=== PATIENT | female | born 1950 | race Caucasian/White ===

== ENCOUNTER 2017-11-11 05:13 | Emergency (ER) | payer MEDICARE ==
[~2017-11-11] VITALS: Ht 157.5 cm; Wt 45.4 kg
[~2017-11-11 05:13] MED LIST: ALBU8HFA2 INH; ALBU90OI; ASPI325; AZIT250 PO; Bactrim Ds Tab1 EACH PO; CALCAVITDA PO; CARV3.125 PO; CITA20; CITA20 PO; CLON1; CLON2; CLON2 PO; CYCL10; CYCL10 PO; FLUT.05NI; HYDACE10B; HYDACE10B PO; HYDACE5 PO; HYDACE5325; HYDMOR4 PO; Lisinopril2.5 MG PO; META800 PO; METH10 PO; METH40; METH40 PO; METH5 PO; MULVITMIND PO; NAPR550 PO; OXYC15ER PO; OXYC30; OXYC30 PO; OXYC30ER PO; PREG25 PO; PREG75; PREG75 PO; PROM25; QUET25 PO; RANI150 PO; SOMA350 MG PO; SPIR25 PO; Venlafaxine HCl50 MG PO
[2017-11-12] MEDS ORDERED: Klonopin0.5 MG PO (20:54)
== END 2017-11-11 06:45 | disposition home or self-care (01) ==
LOC: ER 05:13
DX: F41.9 Anxiety disorder, unspecified (principal); G89.4 Chronic pain syndrome; F17.210 Nicotine dependence, cigarettes, uncomplicated; Z79.899 Other long term (current) drug therapy; Z79.82 Long term (current) use of aspirin
CPT/HCPCS: 99283

== ENCOUNTER 2017-11-12 20:22 | Emergency (ER) | payer MEDICARE ==
[~2017-11-12] VITALS: Ht 157.5 cm; Wt 45.4 kg
[2017-11-12] MEDS ORDERED: Klonopin0.5 MG PO (20:54)
== END 2017-11-12 21:05 | disposition home or self-care (01) ==
LOC: ER 20:22
DX: F41.1 Generalized anxiety disorder (principal); F17.210 Nicotine dependence, cigarettes, uncomplicated; Z79.899 Other long term (current) drug therapy; Z79.82 Long term (current) use of aspirin
CPT/HCPCS: 99283

== ENCOUNTER 2017-11-27 10:24 | Emergency (ER) | payer MEDICARE ==
[~2017-11-27] VITALS: Ht 157.5 cm; Wt 49.9 kg
[~2017-11-27 10:24] MED LIST changes: +Klonopin0.5 MG PO
[2017-11-27 10:50] LABS: Source, Urine Clean Catch
[2017-11-27 10:53] LABS: Bilirubin, Urine Neg (Neg); Blood, Urine 1+ (Neg); Glucose Qualitative, Urine Neg (Neg); Ketones, Urine Neg (Neg); Leukocyte Esterase, Urine Neg (Neg); Nitrite, Urine Neg (Neg); Protein, Urine 2+ (Neg); Specific Gravity, Urine 1.025 (1.003-1.022); Urobilinogen, Urine NORM (Normal)
[2017-11-27] MEDS ORDERED: Aspirin325 MG PO (11:00)
[2017-11-27] MEDS ORDERED: CLON.5 PO (11:01)
[2017-11-27 11:02] LABS: Appearance, Urine Clear (Clear); Color, Urine Yellow (P-Yellow)
[2017-11-27 11:03] LABS: Red Blood Cells, Urine 0-2 /hpf (0-2); White Blood Cells, Urine Not Seen /hpf (0-5)
[2017-11-27 11:04] LABS: Bacteria Few /hpf; Squamous Epithelial Cells Few /hpf (Few)
[2017-11-27] MEDS ORDERED: Buspirone HCl7.5 MG PO (11:05)
[2017-11-27 11:16] LABS: BASOPHILS ABSOLUTE AUTO 0.08 K/mm3 (0.00-0.23); BASOPHILS PERCENT AUTO 1 % (0-2); EOSINOPHILS ABSOLUTE AUTO 0.21 K/mm3 (0.00-0.68); EOSINOPHILS PERCENT AUTO 2 % (0-6); Hematocrit 45.3 % (33.0-51.0); Hemoglobin 15.1 g/dL (11.5-16.0); IMMATURE GRAN ABSOLUTE AUTO 0.08 K/mm3 (0.00-0.10); IMMATURE GRAN PERCENT AUTO 1 % (0-1); LYMPHOCYTES PERCENT AUTO 18 % (21-46); MONOCYTES ABSOLUTE AUTO 0.77 K/mm3 (0.16-1.47); MONOCYTES PERCENT AUTO 7 % (4-13); Mean Corpuscular HGB Conc 33.3 g/dL (31.5-36.5); Mean Corpuscular Volume 99 fL (80-100); NEUTROPHILS ABSOLUTE AUTO 7.49 K/mm3 (1.96-9.15); NEUTROPHILS PERCENT AUTO 71 % (41-73); Platelet Count 198 K/mm3 (150-400); RDW Coefficient Variation 13.1 % (11.7-14.2); RDW Standard Deviation 47.5 fL (35.1-46.3); Red Blood Cell Count 4.57 M/mm3 (3.80-5.20); White Blood Cell Count 10.53 K/mm3 (4.00-11.30)
[2017-11-27 11:33] LABS: Alanine Aminotransfer (ALT/SGP 30 U/L (12-78); Albumin, Blood 4.5 g/dL (3.4-5.0); Albumin/Globulin Ratio 1.2 (0.8-1.8); Alk Phos 73 U/L (50-136); Anion Gap 5 mmol/L (6-16); Aspartate Aminotrans (AST/SGOT 21 U/L (12-37); Bilirubin, Total 0.3 mg/dL (0.1-1.0); Blood Urea Nitrogen 23 mg/dL (8-24); Bun/Creatinine Ratio 37.9 (12.0-20.0); CO2, Blood 25 mmol/L (21-32); Calcium, Blood 9.2 mg/dL (8.5-10.1); Chloride, Blood 107 mmol/L (98-108); Creatinine, Blood 0.61 mg/dL (0.40-1.00); Globulin, Blood 3.9 g/dL (2.2-4.0); Glomerular Filtration Rate >60 (60-); Glucose, Blood 74 mg/dL (70-99); Potassium, Blood 4.2 mmol/L (3.5-5.5); Sodium, Blood 137 mmol/L (136-145); Total Protein, Blood 8.4 g/dL (6.4-8.2)
[2017-11-27] MEDS ORDERED: BUSP5 PO (11:42)
== END 2017-11-27 12:00 | disposition home or self-care (01) ==
LOC: ER 10:24
PROVIDERS: Emergency Medicine
DX: F41.8 Other specified anxiety disorders (principal); F17.210 Nicotine dependence, cigarettes, uncomplicated; Z79.899 Other long term (current) drug therapy; Z79.82 Long term (current) use of aspirin
CPT/HCPCS: 36415; 80053; 81001; 85025; 99283

== ENCOUNTER 2018-01-24 18:19 | Emergency (ER) | payer MEDICARE ==
[~2018-01-24] VITALS: Ht 157.5 cm; Wt 59.0 kg
[~2018-01-24 18:19] MED LIST changes: +Aspirin325 MG PO; +BUSP5 PO; +Buspirone HCl7.5 MG PO; +CLON.5 PO
[2018-01-24] MEDS ORDERED: Vistaril50 MG PO (20:20)
== END 2018-01-24 20:55 | disposition home or self-care (01) ==
LOC: ER 18:19
DX: F41.9 Anxiety disorder, unspecified (principal); F17.210 Nicotine dependence, cigarettes, uncomplicated; Z79.899 Other long term (current) drug therapy; Z79.82 Long term (current) use of aspirin
CPT/HCPCS: 99283

== ENCOUNTER 2018-09-22 15:20 | Emergency (ER) | payer MEDICARE ==
[~2018-09-22] VITALS: Ht 157.5 cm; Wt 59.0 kg
[~2018-09-22 15:20] MED LIST changes: +Vistaril50 MG PO
[2018-09-22 15:57] LABS: BASOPHILS ABSOLUTE AUTO 0.06 K/mm3 (0.00-0.23); BASOPHILS PERCENT AUTO 1 % (0-2); EOSINOPHILS PERCENT AUTO 1 % (0-6); IMMATURE GRAN ABSOLUTE AUTO 0.04 K/mm3 (0.00-0.10); IMMATURE GRAN PERCENT AUTO 1 % (0-1); LYMPHOCYTES ABSOLUTE AUTO 1.34 K/mm3 (0.84-5.20); LYMPHOCYTES PERCENT AUTO 17 % (21-46); MONOCYTES ABSOLUTE AUTO 0.46 K/mm3 (0.16-1.47); MONOCYTES PERCENT AUTO 6 % (4-13); Mean Corpuscular HGB 33.7 pg (26.0-34.0); Mean Corpuscular HGB Conc 32.6 g/dL (31.5-36.5); Mean Corpuscular Volume 103 fL (80-100); Mean Platelet Volume 11.9 fL (9.1-12.4); NEUTROPHILS ABSOLUTE AUTO 5.71 K/mm3 (1.96-9.15); NEUTROPHILS PERCENT AUTO 74 % (41-73); Platelet Count 168 K/mm3 (150-400); RDW Coefficient Variation 13.2 % (11.7-14.2); Red Blood Cell Count 4.16 M/mm3 (3.80-5.20); White Blood Cell Count 7.71 K/mm3 (4.00-11.30)
[2018-09-22 18:37] LABS: Alanine Aminotransfer (ALT/SGP 22 U/L (12-78); Albumin, Blood 3.6 g/dL (3.4-5.0); Albumin/Globulin Ratio 1.2 (0.8-1.8); Alk Phos 73 U/L (50-136); Anion Gap 8 mmol/L (6-16); Aspartate Aminotrans (AST/SGOT 16 U/L (12-37); Bilirubin, Total 0.1 mg/dL (0.1-1.0); Blood Urea Nitrogen 17 mg/dL (8-24); Bun/Creatinine Ratio 32.1 (12.0-20.0); CO2, Blood 28 mmol/L (21-32); Calcium, Blood 8.4 mg/dL (8.5-10.1); Chloride, Blood 108 mmol/L (98-108); Creatinine, Blood 0.53 mg/dL (0.40-1.00); Glomerular Filtration Rate >60 (60-); Glucose, Blood 110 mg/dL (70-99); Sodium, Blood 144 mmol/L (136-145); Total Protein, Blood 6.6 g/dL (6.4-8.2)
== END 2018-09-22 16:18 | disposition left against medical advice (07) ==
LOC: ER 15:20
PROVIDERS: Physician Assistant
DX: Z53.21 Procedure and treatment not carried out due to patient leaving prior to being seen by health care provider (principal)
CPT/HCPCS: 36415; 76705; 80053; 83690; 85025; 99284-25

== ENCOUNTER 2018-12-30 14:47 | Observation (INO) | payer MEDICARE ==
[~2018-12-30] VITALS: Ht 160 cm; Wt 44.9 kg
[~2018-12-30 14:47] MED LIST changes: -CARV3.125 PO; +Coreg12.5 MG PO
[2018-12-30 15:23] LABS: BASOPHILS ABSOLUTE AUTO 0.07 K/mm3 (0.00-0.23); BASOPHILS PERCENT AUTO 1 % (0-2); EOSINOPHILS PERCENT AUTO 1 % (0-6); Hematocrit 41.2 % (33.0-51.0); Hemoglobin 13.2 g/dL (11.5-16.0); IMMATURE GRAN ABSOLUTE AUTO 0.04 K/mm3 (0.00-0.10); IMMATURE GRAN PERCENT AUTO 0 % (0-1); LYMPHOCYTES ABSOLUTE AUTO 1.25 K/mm3 (0.84-5.20); LYMPHOCYTES PERCENT AUTO 13 % (21-46); MONOCYTES ABSOLUTE AUTO 0.87 K/mm3 (0.16-1.47); MONOCYTES PERCENT AUTO 9 % (4-13); Mean Corpuscular HGB 32.4 pg (26.0-34.0); Mean Corpuscular Volume 101 fL (80-100); Mean Platelet Volume 11.4 fL (9.1-12.4); NEUTROPHILS ABSOLUTE AUTO 7.31 K/mm3 (1.96-9.15); NEUTROPHILS PERCENT AUTO 76 % (41-73); Platelet Count 179 K/mm3 (150-400); RDW Coefficient Variation 13.2 % (11.7-14.2); RDW Standard Deviation 49.5 fL (35.1-46.3); Red Blood Cell Count 4.07 M/mm3 (3.80-5.20); White Blood Cell Count 9.64 K/mm3 (4.00-11.30)
[2018-12-30 15:28] LABS: Source, Urine Clean Catch
[2018-12-30 15:46] LABS: Appearance, Urine Clear (Clear); Bilirubin, Urine Neg (Neg); Blood, Urine Neg (Neg); Color, Urine Yellow (P-Yellow); Glucose Qualitative, Urine Neg (Neg); Ketones, Urine 1+ (Neg); Leukocyte Esterase, Urine 1+ (Neg); Nitrite, Urine Neg (Neg); Protein, Urine 1+ (Neg); Specific Gravity, Urine 1.015 (1.003-1.022); Urobilinogen, Urine NORM (Normal); pH, Urine 6.5 (5.0-8.0)
[2018-12-30 15:52] LABS: Alanine Aminotransfer (ALT/SGP 38 U/L (12-78); Albumin, Blood 3.6 g/dL (3.4-5.0); Albumin/Globulin Ratio 1.2 (0.8-1.8); Alk Phos 85 U/L (50-136); Anion Gap 5 mmol/L (6-16); Aspartate Aminotrans (AST/SGOT 26 U/L (12-37); Bilirubin, Total 0.5 mg/dL (0.1-1.0); Blood Urea Nitrogen 27 mg/dL (8-24); Bun/Creatinine Ratio 38.4 (12.0-20.0); CO2, Blood 29 mmol/L (21-32); Calcium, Blood 8.6 mg/dL (8.5-10.1); Chloride, Blood 103 mmol/L (98-108); Glomerular Filtration Rate >60 (60-); Glucose, Blood 113 mg/dL (70-99); Potassium, Blood 4.6 mmol/L (3.5-5.5); Salicylate 10.5 mg/dL (2.8-20.0); Sodium, Blood 137 mmol/L (136-145); Total Protein, Blood 6.6 g/dL (6.4-8.2)
[2018-12-30] MEDS ORDERED: METH10 PO (15:57)
[2018-12-30] MEDS ORDERED: OXYC30 PO (15:57)
[2018-12-30 15:59] LABS: U Amphetamine Screen Not Detected; U Barbituate Screen Not Detected; U Benzodiazapine Screen DETECTED; U Buprenorphine Screen Not Detected; U Cannabinoids Screen Not Detected; U Cocaine Screen Not Detected; U Methadone Screen DETECTED; U Methamphetamine Screen Not Detected; U Opiates Screen Not Detected; U Oxycodone Screen DETECTED; U Phencyclidine Screen Not Detected
[2018-12-30 15:59] LABS: Acetaminophen, Random <2.0 ug/mL (10.0-30.0)
[2018-12-30] MEDS ORDERED: SPIR25 PO (15:59)
[2018-12-30 16:00] LABS: U Propoxyphene Screen Not Detected
[2018-12-30 16:09] LABS: Red Blood Cells, Urine 0-2 /hpf (0-2); Squamous Epithelial Cells Mod /hpf (Few)
[2018-12-30 16:10] LABS: Bacteria Few /hpf
--- NOTE | 2018-12-30 19:00 | NUR ---
Blair of Care: Patient sitting upright in bed, watching tv, talking on phone with family. Denies pain, discomfort, SOB, or dyspnea. Alert, oriented to self, time, and family. Confused to place and reason for admission, does not remember taking medications (oxycodone, methadone). VSS, O2-98% on RA. Peripheral IV's x2 patent and intact, SL. PO fluids at bedside. Stand-pivot assist to bedside commode via 1 person assist. X1 attempt at start of shift to get out of bed, tab alarm applied. Patient re-oriented to use of call light. Will continue to monitor for pain, comfort, safety.
--- NOTE | 2018-12-30 19:18 | NUR ---
INITIAL ASSESSMENT PATIENT ARRIVED TO UNIT SHORT TIME AGO. PATIENT ALERT AND ORIENTED X 4, HOWEVER SEEMS FORGETFUL. PATIENT DENIES SI AND STATES THAT SHE IS IN HOSPITAL BECAUSE OF HER HEART. PATIENT DENIES PAIN. PATIENT AFEBRILE. PATIENT WEAK, 1 PERSON ASSIST. PATIENT SATTING HIGH 90S ON RA. PATIENT HAS INSPIRATORY WHEEZES IN UPPER LOBES AND DIMINISHED IN LOWER LOBES. PATIENT HAS MOIST, NONPRODUCTIVE COUGH. PATIENT IN SR WITH LBBB AND OCCASIONAL PVCS. HR 70S TO 80S. BP STABLE. PULSES STRONG. NO EDEMA NOTED. GI WNL. WNL. SKIN WNL. IVS FLUSHED AND SALINE LOCKED. BED LOW, CALL LIGHT IN REACH, TAB ALARM ON. WILL CONTINUE TO MONITOR.
[2018-12-31 04:05] LABS: Anion Gap 3 mmol/L (6-16); Blood Urea Nitrogen 14 mg/dL (8-24); Bun/Creatinine Ratio 25.5 (12.0-20.0); CO2, Blood 34 mmol/L (21-32); Calcium, Blood 8.7 mg/dL (8.5-10.1); Chloride, Blood 103 mmol/L (98-108); Creatinine, Blood 0.55 mg/dL (0.40-1.00); Glomerular Filtration Rate >60 (60-); Glucose, Blood 79 mg/dL (70-99); Magnesium, Blood 2.2 mg/dL (1.6-2.4); Sodium, Blood 140 mmol/L (136-145)
--- NOTE | 2018-12-31 06:44 | NUR ---
Shift Summary: Patient slept well throughout shift, easily roused via verbal stimuli. Continues to deny pain, discomfort, SOB, or dyspnea. Remains alert oriented to self/time, confused to reason for admission. VSS throughout shift, O@-95-98% on RA. Transferring to bedside commode or chair via stand-by assist without difficulty. Tab-alarm in place for safety, forgets to use call light but calls out for assistance. Peripheral IV's x2 remain patent and intact. Sleeping at this time. Will continue to monitor until report to day shift RN.
--- NOTE | 2018-12-31 08:56 | NUR ---
0730-ASSUMED CARE OF PT. PT IS ALERT AND ORIENTED. LABILE MOOD FROM BEING ANGRY TO TEARFUL TO PLEASANT AND THANKFUL. PT TRIED TO GET OUT OF BED FREQUENTLY DESPITE THE BED ALARM AND THE TAB ALARM. PT IS A FLIGHT RISK. COMPLAINTS OF ABDOMINAL PAIN. 0845-PT SITTING ON THE CAHIR AT THIS TIME. 0856-TALKKED TO DR. LASHAWN MCCRACKEN. REGARDING PT'S LABILE MOOD. UPDATED HER OF PT'S STATUS.
--- NOTE | 2018-12-31 10:11 | NUR ---
POISON CONTROL HAD CALLED, UPDATED THEM OF PT'S STATUS. POISON CONTROL CLEARED PATIENT. RELAYED THIS INFORMATION TO DR. LASHAWN Poole. PT HAS BEEN SO AGITATED AND GETTING OUT OF BED EVERY 2 MINS. PT IS VERY FORGETFUL AND STATING "I'M SCARED. I DON'T KNOW, WHY I AM SCARED." DR. LASHAWN Poole WAS NOTIFIED ABOUT THIS WELL. SET UP AN APPOINTMENT WITH TELEPSYCH.
--- NOTE | 2018-12-31 12:49 | NUR ---
PT WAS ABLE TO TALK TO THE TELEPSYCH DR. DR. BARLOW. SPOKE WITH DR. HARDIN, PT WILL BE DISCHARGED HOME.
[2018-12-31] MEDS ORDERED: Cymbalta20 MG PO (13:31)
== END 2018-12-31 14:40 | disposition home or self-care (01) ==
LOC: ER 14:47 → ICUW 14:48
PROVIDERS: Emergency Medicine; Nurse Practitioner Acute Care; ADMIT Internal Medicine
DX: T40.3X1A Poisoning by methadone, accidental (unintentional), initial encounter (principal); T40.2X2A Poisoning by other opioids, intentional self-harm, initial encounter; G89.29 Other chronic pain; F41.1 Generalized anxiety disorder; I11.0 Hypertensive heart disease with heart failure; I50.22 Chronic systolic (congestive) heart failure; M54.9 Dorsalgia, unspecified; F17.210 Nicotine dependence, cigarettes, uncomplicated; F17.200 Nicotine dependence, unspecified, uncomplicated; Z98.890 Other specified postprocedural states; Z79.899 Other long term (current) drug therapy; Z88.6 Allergy status to analgesic agent; Z79.01 Long term (current) use of anticoagulants
CPT/HCPCS: 36415; 80048; 80053; 81001; 83735; 85025; 87086; 93005; 93010; 96365; 96372; 99285-25; G0378; G0480; J1650; J3475

== ENCOUNTER 2019-10-03 10:56 | Emergency (ER) | payer MEDICARE ==
[~2019-10-03] VITALS: Ht 157.5 cm; Wt 45.4 kg
[~2019-10-03 10:56] MED LIST changes: +Cymbalta20 MG PO
[2019-10-03 11:46] LABS: BASOPHILS ABSOLUTE AUTO 0.07 K/mm3 (0.00-0.23); BASOPHILS PERCENT AUTO 1 % (0-2); EOSINOPHILS ABSOLUTE AUTO 0.15 K/mm3 (0.00-0.68); EOSINOPHILS PERCENT AUTO 2 % (0-6); Hematocrit 41.4 % (33.0-51.0); Hemoglobin 13.1 g/dL (11.5-16.0); IMMATURE GRAN ABSOLUTE AUTO 0.04 K/mm3 (0.00-0.10); IMMATURE GRAN PERCENT AUTO 0 % (0-1); LYMPHOCYTES ABSOLUTE AUTO 1.76 K/mm3 (0.84-5.20); LYMPHOCYTES PERCENT AUTO 20 % (21-46); MONOCYTES ABSOLUTE AUTO 0.95 K/mm3 (0.16-1.47); MONOCYTES PERCENT AUTO 11 % (4-13); Mean Corpuscular HGB 31.5 pg (26.0-34.0); Mean Corpuscular HGB Conc 31.6 g/dL (31.5-36.5); Mean Corpuscular Volume 100 fL (80-100); NEUTROPHILS ABSOLUTE AUTO 6.07 K/mm3 (1.96-9.15); NEUTROPHILS PERCENT AUTO 67 % (41-73); Platelet Count 242 K/mm3 (150-400); RDW Coefficient Variation 13.9 % (11.7-14.2); RDW Standard Deviation 50.6 fL (35.1-46.3); Red Blood Cell Count 4.16 M/mm3 (3.80-5.20); White Blood Cell Count 9.04 K/mm3 (4.00-11.30)
[2019-10-03 12:01] LABS: Source, Urine Clean Catch
[2019-10-03 12:06] LABS: Alanine Aminotransfer (ALT/SGP 35 U/L (12-78); Albumin, Blood 3.5 g/dL (3.4-5.0); Albumin/Globulin Ratio 0.9 (0.8-1.8); Alk Phos 95 U/L (50-136); Anion Gap 4 mmol/L (6-16); Aspartate Aminotrans (AST/SGOT 25 U/L (12-37); Bilirubin, Total 0.3 mg/dL (0.1-1.0); Blood Urea Nitrogen 9 mg/dL (8-24); Bun/Creatinine Ratio 19.8 (12.0-20.0); CO2, Blood 30 mmol/L (21-32); Calcium, Blood 9.3 mg/dL (8.5-10.1); Chloride, Blood 103 mmol/L (98-108); Creatinine, Blood 0.46 mg/dL (0.40-1.00); Glomerular Filtration Rate >60 (60-); Glucose, Blood 72 mg/dL (70-99); Potassium, Blood 4.5 mmol/L (3.5-5.5); Sodium, Blood 137 mmol/L (136-145); Total Protein, Blood 7.5 g/dL (6.4-8.2)
[2019-10-03 12:07] LABS: Bilirubin, Urine Neg (Neg); Blood, Urine Neg (Neg); Glucose Qualitative, Urine Neg (Neg); Ketones, Urine Neg (Neg); Leukocyte Esterase, Urine 1+ (Neg); Nitrite, Urine Neg (Neg); Protein, Urine Neg (Neg); Urobilinogen, Urine NORM (Normal)
[2019-10-03 12:13] LABS: Appearance, Urine Clear (Clear)
[2019-10-03 12:14] LABS: Color, Urine Yellow (P-Yellow)
[2019-10-03 12:18] LABS: Bacteria Few /hpf; Red Blood Cells, Urine 0-2 /hpf (0-2); Squamous Epithelial Cells Few /hpf (Few)
[2019-10-03] MEDS ORDERED: PEPCID40 MG PO (13:06)
[2019-10-03] MEDS ORDERED: Sucralfate1 GM PO (13:06)
[2019-10-03] MEDS ORDERED: NICO21TP TOP (13:18)
== END 2019-10-03 13:27 | disposition home or self-care (01) ==
LOC: ER 10:56
PROVIDERS: Physician Assistant
DX: K29.70 Gastritis, unspecified, without bleeding (principal); S00.31XA Abrasion of nose, initial encounter; F03.90 Unspecified dementia, unspecified severity, without behavioral disturbance, psychotic disturbance, mood disturbance, and anxiety; F17.210 Nicotine dependence, cigarettes, uncomplicated; Z88.6 Allergy status to analgesic agent; X58.XXXA Exposure to other specified factors, initial encounter
CPT/HCPCS: 36415; 80053; 81001; 83690; 85025; 87086; 99283

== ENCOUNTER 2019-12-05 12:46 | Observation (INO) | payer MEDICARE ==
[~2019-12-05] VITALS: Ht 162.6 cm; Wt 44.9 kg
[~2019-12-05 12:46] MED LIST changes: +NICO21TP TOP; +PEPCID40 MG PO; +Sucralfate1 GM PO
[2019-12-05 13:33] LABS: BASOPHILS ABSOLUTE AUTO 0.07 K/mm3 (0.00-0.23); BASOPHILS PERCENT AUTO 1 % (0-2); EOSINOPHILS PERCENT AUTO 1 % (0-6); Hematocrit 33.7 % (33.0-51.0); Hemoglobin 10.7 g/dL (11.5-16.0); IMMATURE GRAN ABSOLUTE AUTO 0.07 K/mm3 (0.00-0.10); IMMATURE GRAN PERCENT AUTO 1 % (0-1); LYMPHOCYTES ABSOLUTE AUTO 1.02 K/mm3 (0.84-5.20); LYMPHOCYTES PERCENT AUTO 9 % (21-46); MONOCYTES ABSOLUTE AUTO 0.89 K/mm3 (0.16-1.47); MONOCYTES PERCENT AUTO 8 % (4-13); Mean Corpuscular HGB 32.7 pg (26.0-34.0); Mean Corpuscular HGB Conc 31.8 g/dL (31.5-36.5); Mean Corpuscular Volume 103 fL (80-100); Mean Platelet Volume 11.5 fL (9.1-12.4); NEUTROPHILS ABSOLUTE AUTO 9.47 K/mm3 (1.96-9.15); NEUTROPHILS PERCENT AUTO 81 % (41-73); NRBC ABSOLUTE 0.02 K/mm3 (0.00-0.02); NRBC Auto 0.2 /100 WBC (0.0-0.2); Platelet Count 164 K/mm3 (150-400); RDW Coefficient Variation 15.2 % (11.7-14.2); RDW Standard Deviation 56.2 fL (35.1-46.3); Red Blood Cell Count 3.27 M/mm3 (3.80-5.20); White Blood Cell Count 11.62 K/mm3 (4.00-11.30)
[2019-12-05 13:52] LABS: Acetaminophen, Random <2.0 ug/mL (10.0-30.0); Alanine Aminotransfer (ALT/SGP 161 U/L (12-78); Albumin, Blood 3.6 g/dL (3.4-5.0); Albumin/Globulin Ratio 1.2 (0.8-1.8); Alk Phos 147 U/L (50-136); Anion Gap 7 mmol/L (6-16); Aspartate Aminotrans (AST/SGOT 155 U/L (12-37); Bilirubin, Total 0.8 mg/dL (0.1-1.0); Blood Urea Nitrogen 19 mg/dL (8-24); Bun/Creatinine Ratio 23.5 (12.0-20.0); CO2, Blood 28 mmol/L (21-32); Calcium, Blood 8.4 mg/dL (8.5-10.1); Chloride, Blood 98 mmol/L (98-108); Creatinine, Blood 0.81 mg/dL (0.40-1.00); Ethanol (Alcohol), Blood, Med <3 mg/dL; Globulin, Blood 3.1 g/dL (2.2-4.0); Glomerular Filtration Rate >60 (60-); Glucose, Blood 106 mg/dL (70-99); Potassium, Blood 5.7 mmol/L (3.5-5.5); Salicylate 2.3 mg/dL (2.8-20.0); Sodium, Blood 133 mmol/L (136-145); Total Protein, Blood 6.7 g/dL (6.4-8.2)
[2019-12-05 14:20] LABS: Source, Urine Clean Catch
[2019-12-05 14:30] LABS: Appearance, Urine Hazy (Clear); Bilirubin, Urine Neg (Neg); Blood, Urine Neg (Neg); Color, Urine Yellow (P-Yellow); Glucose Qualitative, Urine Neg (Neg); Ketones, Urine Neg (Neg); Leukocyte Esterase, Urine Neg (Neg); Nitrite, Urine Neg (Neg); Protein, Urine 3+ (Neg); Urobilinogen, Urine NORM (Normal)
[2019-12-05 14:58] LABS: Amorphous Mod (0-Heavy); White Blood Cells, Urine 0-2 /hpf (0-5)
[2019-12-05 14:59] LABS: Bacteria Few /hpf; Red Blood Cells, Urine 0-2 /hpf (0-2); Squamous Epithelial Cells Few /hpf (Few)
[2019-12-05 15:05] LABS: U Amphetamine Screen DETECTED; U Barbituate Screen Not Detected; U Benzodiazapine Screen Not Detected; U Buprenorphine Screen Not Detected; U Cannabinoids Screen DETECTED; U Cocaine Screen Not Detected; U Methadone Screen Not Detected; U Methamphetamine Screen DETECTED; U Opiates Screen Not Detected; U Oxycodone Screen Not Detected; U Phencyclidine Screen Not Detected; U Propoxyphene Screen Not Detected
[2019-12-06] MEDS ORDERED: QUET25 PO (07:32)
== END 2019-12-06 09:55 | disposition home or self-care (01) ==
LOC: ER 12:46 → EOR 12:47
PROVIDERS: Physician Assistant; ADMIT Emergency Medicine
DX: F29 Unspecified psychosis not due to a substance or known physiological condition (principal); F17.210 Nicotine dependence, cigarettes, uncomplicated; F10.10 Alcohol abuse, uncomplicated; F41.9 Anxiety disorder, unspecified; Z79.899 Other long term (current) drug therapy
CPT/HCPCS: 36415; 80053; 81001; 84484; 85025; 94640; 96372; 96374; 96376; 99285-25; G0378; G0480; J2060; P9612

== ENCOUNTER 2020-02-06 10:47 | Inpatient (IN) | payer MEDICARE ==
[~2020-02-06] VITALS: Ht 157.5 cm; Wt 59.0 kg
[2020-02-06 11:31] LABS: BASOPHILS ABSOLUTE AUTO 0.03 K/mm3 (0.00-0.23); BASOPHILS PERCENT AUTO 0 % (0-2); EOSINOPHILS ABSOLUTE AUTO 0.03 K/mm3 (0.00-0.68); EOSINOPHILS PERCENT AUTO 0 % (0-6); Hemoglobin 11.8 g/dL (11.5-16.0); IMMATURE GRAN ABSOLUTE AUTO 0.05 K/mm3 (0.00-0.10); IMMATURE GRAN PERCENT AUTO 0 % (0-1); LYMPHOCYTES ABSOLUTE AUTO 1.21 K/mm3 (0.84-5.20); LYMPHOCYTES PERCENT AUTO 11 % (21-46); MONOCYTES ABSOLUTE AUTO 0.59 K/mm3 (0.16-1.47); MONOCYTES PERCENT AUTO 5 % (4-13); Mean Corpuscular HGB 29.9 pg (26.0-34.0); Mean Corpuscular HGB Conc 31.1 g/dL (31.5-36.5); Mean Corpuscular Volume 96 fL (80-100); Mean Platelet Volume 12.7 fL (9.1-12.4); NEUTROPHILS ABSOLUTE AUTO 9.66 K/mm3 (1.96-9.15); NEUTROPHILS PERCENT AUTO 83 % (41-73); NRBC ABSOLUTE 0.02 K/mm3 (0.00-0.02); NRBC Auto 0.2 /100 WBC (0.0-0.2); Platelet Count 153 K/mm3 (150-400); RDW Coefficient Variation 15.7 % (11.7-14.2); RDW Standard Deviation 55.2 fL (35.1-46.3); Red Blood Cell Count 3.94 M/mm3 (3.80-5.20); White Blood Cell Count 11.57 K/mm3 (4.00-11.30)
[2020-02-06 11:46] LABS: Alanine Aminotransfer (ALT/SGP 71 U/L (12-78); Albumin, Blood 3.1 g/dL (3.4-5.0); Albumin/Globulin Ratio 0.8 (0.8-1.8); Alk Phos 116 U/L (50-136); Anion Gap 9 mmol/L (6-16); Aspartate Aminotrans (AST/SGOT 50 U/L (12-37); Bilirubin, Total 1.9 mg/dL (0.1-1.0); Blood Urea Nitrogen 30 mg/dL (8-24); Bun/Creatinine Ratio 39.4 (12.0-20.0); CO2, Blood 27 mmol/L (21-32); Calcium, Blood 7.8 mg/dL (8.5-10.1); Chloride, Blood 102 mmol/L (98-108); Creatinine, Blood 0.76 mg/dL (0.40-1.00); Ethanol (Alcohol), Blood, Med <3 mg/dL; Globulin, Blood 3.7 g/dL (2.2-4.0); Glomerular Filtration Rate >60 (60-); Glucose, Blood 108 mg/dL (70-99); Potassium, Blood 3.8 mmol/L (3.5-5.5); Sodium, Blood 138 mmol/L (136-145); Total Protein, Blood 6.8 g/dL (6.4-8.2); Troponin I 0.031 ng/mL (0.000-0.040)
[2020-02-06] MEDS ORDERED: QUETIAPINE FUMA25 MG PO (11:55)
[2020-02-06 12:19] LABS: U Amphetamine Screen Not Detected; U Barbituate Screen Not Detected; U Benzodiazapine Screen Not Detected; U Cannabinoids Screen DETECTED; U Cocaine Screen Not Detected; U Methadone Screen Not Detected; U Methamphetamine Screen DETECTED; U Opiates Screen Not Detected
[2020-02-06 12:20] LABS: U Buprenorphine Screen Not Detected; U Oxycodone Screen Not Detected; U Phencyclidine Screen Not Detected; U Propoxyphene Screen Not Detected
[2020-02-06] MEDS ORDERED: CARV3.125 PO (12:35)
--- NOTE | 2020-02-06 18:22 | NUR ---
SHIFT SUMMARY PT ADMITTED TO PCU THIS AFTERNOON FOR CHF. PAK IN PLACE AND EMPTIED 14OOML UPON ARRIVAL. PT DECLINED ANY SHORTNESS OF BREATH UPON ARRIVAL TO UNIT AND ON 5L OXYIMIZER. SPO2 REMAINED STABLE AND WAS ABLE TO TITRATE PT DOWN TO 2L OF O2. TELEMETRY SHOWED PT TO BE IN NSR PER HOT MILL OPERATOR. AICD LOCATED TO LEFT CHEST. MULTIPLE SMALL BRUISES WERE NOTED THROUGH OUT PT'S BODY AND PT INITIALLY DECLINED ANY INJURY OR FALLS, UPON FURTHER EVAL PT REPORTS HAVING FALLEN AT HOME. SMALL BLISTER ALSO NOTED ON PT'S LEFT GAINES/LOWER LEG. PT WAS INSTRUCTED ON FLUID RESTRICT PER DR'S ORDERS, PT FORGETFUL AND NEEDS REMINDING ON REASON FOR ORDER. LOW CIWA SCORE CURRENTLY FOR PT. PT REPORTS ONLY HAVING "A SIP OF BEER" DAILY.
[2020-02-07 00:30] LABS: BASOPHILS ABSOLUTE AUTO 0.02 K/mm3 (0.00-0.23); BASOPHILS PERCENT AUTO 0 % (0-2); EOSINOPHILS ABSOLUTE AUTO 0.08 K/mm3 (0.00-0.68); EOSINOPHILS PERCENT AUTO 1 % (0-6); Hematocrit 32.2 % (33.0-51.0); Hemoglobin 10.1 g/dL (11.5-16.0); IMMATURE GRAN ABSOLUTE AUTO 0.03 K/mm3 (0.00-0.10); IMMATURE GRAN PERCENT AUTO 0 % (0-1); LYMPHOCYTES ABSOLUTE AUTO 1.07 K/mm3 (0.84-5.20); LYMPHOCYTES PERCENT AUTO 12 % (21-46); MONOCYTES ABSOLUTE AUTO 0.58 K/mm3 (0.16-1.47); MONOCYTES PERCENT AUTO 6 % (4-13); Mean Corpuscular HGB 29.9 pg (26.0-34.0); Mean Corpuscular HGB Conc 31.4 g/dL (31.5-36.5); Mean Corpuscular Volume 95 fL (80-100); Mean Platelet Volume 12.4 fL (9.1-12.4); NEUTROPHILS ABSOLUTE AUTO 7.44 K/mm3 (1.96-9.15); NEUTROPHILS PERCENT AUTO 81 % (41-73); Platelet Count 125 K/mm3 (150-400); RDW Coefficient Variation 15.5 % (11.7-14.2); Red Blood Cell Count 3.38 M/mm3 (3.80-5.20); White Blood Cell Count 9.22 K/mm3 (4.00-11.30)
[2020-02-07 00:49] LABS: Alanine Aminotransfer (ALT/SGP 52 U/L (12-78); Albumin, Blood 2.5 g/dL (3.4-5.0); Albumin/Globulin Ratio 0.8 (0.8-1.8); Alk Phos 89 U/L (50-136); Anion Gap 8 mmol/L (6-16); Aspartate Aminotrans (AST/SGOT 36 U/L (12-37); Bilirubin, Total 1.3 mg/dL (0.1-1.0); Blood Urea Nitrogen 31 mg/dL (8-24); Bun/Creatinine Ratio 37.3 (12.0-20.0); CO2, Blood 31 mmol/L (21-32); Calcium, Blood 7.4 mg/dL (8.5-10.1); Chloride, Blood 102 mmol/L (98-108); Creatinine, Blood 0.83 mg/dL (0.40-1.00); Glomerular Filtration Rate >60 (60-); Glucose, Blood 97 mg/dL (70-99); Magnesium, Blood 1.9 mg/dL (1.6-2.4); Potassium, Blood 3.5 mmol/L (3.5-5.5); Sodium, Blood 141 mmol/L (136-145); Total Protein, Blood 5.5 g/dL (6.4-8.2)
--- NOTE | 2020-02-07 06:18 | NUR ---
SHIFT SUMMARY PT ALERT & ORIENTED TO SELF; VSS; DENIES CHEST PAIN; 02 SATS >93 ON 2L NC; PT SLEPT SEVERAL HOURS; AWOKE ABRUBTLY AND STATES SHE HAS "BEEN GONE A LONG TIME" BEING IN THE HOSPITAL "IS THE BEST THING THAT HAS HAPPENED TO ME"; PT UNABLE TO ELABORATE; PAK DRAINING LT YELLOW URINE; WARM BLANKET BROUGHT TO PT; SNACKS ENCOURAGED AND BROUGHT TO PT; PO FLUIDS 22O ML INTAKE; CALL LIGHT IN REACH; BED IN LOWEST POSITION; BED ALARM ON; WILL CONTINUE TO MONITOR CLOSELY UNTIL HAND OFF TO DAY SHIFT RN.
--- NOTE | 2020-02-07 09:59 | NUR ---
AM NOTE... ASSUMED CARE OF PT APROX 0700, PT IS A&Ox4. PT WAS ADMITTED FOR RESP FAILURE. PT IS CURRENTLY ON 4 L, PT STATES HER BASELINE IS 3-5L NC. PT HAS BEEN VERBALLY AGRESSIVE TOWARDS STAFF THIS AM, A FULL ASSESSMENT WAS NOT ABLE TO BE DONE D/T THE PT'S REFUSAL OF CARE AND MEDICATIONS AT THIS TIME. PT IS NSR IN THE 80'S ON TELE. CALL LIGHT IN REACH WILL CONTINUE TO MONITOR.
--- NOTE | 2020-02-07 10:16 | NUR ---
AM NOTE... ASSUMED CARE OF PT APROX 0700. PT IS A&Ox4 BEING ABLE TO STATE THE MONTH, YEAR, PRESIDENT AND [place]. PT'S VS STABLE AT THIS TIME. L/S CLEAR IN THE UPPER LOBES FINE CRACKLES NOTED IN THE LOWER AND RIGHT MID LOBES. PT HAS 2+ PITTING EDEMA TO HER BLE. BT PRESENT AND NORMOACTIVE ABD SOFT AND NONTENDER TO PALP. PT'S PAK IS PATENT AND DRAINING TO GRAVITY. CALL LIGHT IN REACH WILL CONTINUE TO MONITOR.
--- NOTE | 2020-02-07 15:17 | NUR ---
PT UPDATE/TRANSFER... PT IS TRANSFERING TO MEDICAL FLOOR. VS STABLE AT THIS TIME, CWIA IS CURRENTLY 5. PT IS ON 1L NC WITH O2 SATS 96%. PT IS VERY PLEASENT AND COOPERATIVE WITH CARE. REPORT CALLED TO LEON TREJO ON MEDICAL FLOOR.
--- NOTE | 2020-02-07 15:30 | NUR ---
TRANSFER NOTE- PT TRANSFERED TO MEDICAL FLOOR FROM PCU. ACCORDING TO H&P PT HAS CHRONIC SYSTOLIC HEART FAILURE, LAST ECHO IN 2016. PT HAS NOT YET HAD A REPEAT ECHO, WILL CALL DR CASTLE TO VERIFY THAT ONE IS STILL NEEDED. PLAN (PER REPORT) IS TO DIURESE AND POSSIBLY DC THE PT HOME TOMORROW. PT HAS A PAK IN PLACE FOR SAFETY AND STRICT I&O'S. PATENT AND DRAINING DARK YELLOW URINE.
--- NOTE | 2020-02-07 15:45 | NUR ---
SPOKE TO DR CASTLE- LINDSEY ECHO HAS BEEN ORDERED, CALLED FISHING VESSEL MATE BILL, ECHO SHOULD BE COMPLETED THIS EVENING.
--- NOTE | 2020-02-07 18:13 | NUR ---
Echocardiogram using 0.50ml of Definity contrast performed.
--- NOTE | 2020-02-07 18:43 | NUR ---
SHIFT SUMMARY- PT HAS HAD NO ACUTE CHANGE SINCE ARRIVING ON MEDICAL FLOOR. PT HAD AN ECHO COMPLETED THIS EVENING. AT ONE POINT THE PT DID BEGIN CALLING OUT ANXIOUSLY BECAUSE SHE NEEDED TO HAVE A BM. STAFF ASSISTED HER TO THE BSC WHERE SHE DETERMINED IT WAS "A FALSE ALARM." PT REMAINS IN [facility] [employer] CIWA SCORE WAS 3 UPON ARRIVAL TO MED FLOOR.
--- NOTE | 2020-02-08 05:00 | NUR ---
RIPSAW GRADER SUMMARY PT HAD CIWA OF 8 AT START OF SHIFT. GIVEN 1 MG IV ATIVAN PER ORDERS. PT ABLE TO RELAX AND SLEEP AFTERWARD BUT WAS NOTICABLY DROWSY AFTER ATIVAN. PT REMAINED AAOX3, BUT WAS MORE SLOW IN HER RESPONSE. NOTIFIED MYRON LOZADA BULLDOZER/LOADER/COMPACTOR/SCRAPER SINCE ATIVAN ORDER STATED 1-4 MG, ORDER CHANGED TO 0.5-1 MG. PT HAS SLEPT MOST OF THE SHIFT. 1 ASSIST TO BSC. PAK CATH IN PLACE DRAINING CLEAR YELLOW URINE. VSS, WILL CONTINUE TO MONITOR.
[2020-02-08 08:43] LABS: Anion Gap 4 mmol/L (6-16); Blood Urea Nitrogen 33 mg/dL (8-24); Bun/Creatinine Ratio 46.5 (12.0-20.0); CO2, Blood 37 mmol/L (21-32); Calcium, Blood 7.5 mg/dL (8.5-10.1); Chloride, Blood 97 mmol/L (98-108); Creatinine, Blood 0.71 mg/dL (0.40-1.00); Glomerular Filtration Rate >60 (60-); Glucose, Blood 71 mg/dL (70-99); Magnesium, Blood 2.1 mg/dL (1.6-2.4); Potassium, Blood 3.3 mmol/L (3.5-5.5); Sodium, Blood 138 mmol/L (136-145)
--- NOTE | 2020-02-08 10:42 | NUR ---
SPOKE TO DR CASTLE (LATE ENTRY)- PT RECIEVED MORNING DOSE OF LASIX AT THE PREVIOUS DOSE, ORDER TO HOLD THE NEW DOSE OF IV LASIX THIS MORNING AND START THIS EVENING. OK TO GIVE NEW CARDIAC MEDICATIONS, SPIRONOLACTONE HOLD THIS MORNING GIVE THIS EVENING. PT BECAME IRRITABLE AND WAS CALLING OUT FOR STAFF STATED HER LEGS WERE CRAMPING, DISCONNECTED THE SCD'S, SPOKE TO , PT HAD ALREADY RECIEVED THE MORNING DOSE OF 10MEQ OF POTASSIUM, ORDER RECIEVED TO GIVE ADDITIONAL 20MEQ AT THIS TIME. PT CIWA SCORE CONTINUES TO BE 4.
--- NOTE | 2020-02-08 12:00 | NUR ---
PT DENIES ITCHING BUT IS SCRATCHING AND PICKING. GAVE 1 POINT FOR MILD ICHING ON CIWA. PT CIWA SCORE CURRENTLY IS 4
--- NOTE | 2020-02-08 12:32 | NUR ---
SPOKE TO DR CASTLE- PT NO LONGER NEEDS STRICT I&O OK TO TONY PAK. PT HAS HAD 3600 OUT IN THE PAK IN THE PAST 6 HOURS. PASHA JIMENEZ'Aime, PT VERY APPRECIATIVE. PT SITTING UP IN BED CALL LIGHT IN REACH, JUST WOKE FROM A HEAVY NAP.
--- NOTE | 2020-02-08 15:33 | NUR ---
CALLED DR CASTLE- PT SITTING UP IN THE BED CRYING "HELP ME! HELP ME! HELP MOMMA!" CIWA SCORE IS STILL BELOW 8 PT IS JUST ANXIOUS AND STATES SHE IS HUNGRY. STAFF WILL FEED HER AND SHE WILL BEGIN CRYING OUT FOR HELP THE MOMENT THE FOOD IS GONE. PT DENIES PAIN, STATES "NO, IM JUST HUNGRY." PROVIDED MORE SNACKS. RECIEVED AN ORDER FOR PO ZYPREXA IF NEEDED. SPOKE TO PALLIATIVE CARE RN SARBJIT ABOUT PT CASE SHE IS ATTEMPTING TO CALL THE PT FAMILY FOR DECISION MAKING THE PT IS FULL CODE.
--- NOTE | 2020-02-08 16:44 | NUR ---
PT IS VERY LABILE- PT CALLING OUT, STATES NO NAUSEA THEN SAYS HER STOMACH IS UPSET, STATES NO HEAD ACHE THEN SAYS HER HEAD HURTS, PT CAN ACCURATLY STATE THE DATE. PT CALLING OUT THAT SHE IS HUNGRY THEN IS UNCONCIOUS WHEN STAFF COME IN TO SEE HER.
--- NOTE | 2020-02-08 17:12 | NUR ---
SPOKE TO DR CASTLE- PT BP IS ORTHOSTATIC. SPOKE TO ABOUT THE LOW PRESSURE. OK TO HOLD ALL EVENING BP MEDS AND THE OT DOSE OF ZYPREXA. IV LASIX TO BE HELD THIS EVENING.
--- NOTE | 2020-02-08 18:17 | NUR ---
TRANSFER NOTE- PT TRANSFERED TO SCU FOR SAFETY AND REQUESTED MONITORS FOR SAFETY. BEDSIDE REPORT COMPLETED WITH YANETH TREJO. PT ALERT AT THE TIME OF TRANSFER TALKING CALMLY WITH STAFF. CIWA SCORE WAS DOWN AGAIN TO 4.
--- NOTE | 2020-02-08 19:17 | NUR ---
SHIFT SUMMARY: PATIENT XFR FROM ROOM 355 THIS SHIFT. PT ALERT; CONFUSED; REDIRECTABLE; COOPERATIVE WITH CARE. NO C/O PAIN SINCE ARRIVAL IN ROOM 347. O2 @ 1L FOR COMFORT. PT UP c 1-ASSIST TO BSC. FLUID RESTRICTION - 1500ML/DAY. PT & OT FOLLOWING. BED ALARM ON FOR SAFETY. DIURETICS CONTINUING. REPORT GIVEN TO ONCOMING RN.
--- NOTE | 2020-02-08 20:10 | NUR ---
CIWA SCORE OF 10. PT HIGHLY AGITATED, YELLING "HELP ME! HELP ME!" REPEATEDLY, ONLY STOPPING WHEN INTERACTED WITH. PT ALSO GETTING UP AND DOWN IN AND OUT OF BED REPEATEDLY, ACTING VERY RESTLESS. STATES SHE IS SCARED AND ANSIOUX. CALLING OUT FOR HER SONS. ATIVAN 1MG ADMINISTERED. WILL CONT TO MONITOR.
--- NOTE | 2020-02-08 23:33 | NUR ---
PT WOKE UP FROM SHORT NAP AGITATED AND ATTEMPTING TO GET OUT OF BED. WHEN SPOKE W/PT SHE STATES HER ANXIOUSNESS WOKE HER UP. ASSISTED TO THE BATHROOM, OFFERED SNACK, AND ADJUSTED ROOM TEMP PER PT PREFERENCE. CONT W/AGITATION AND RESTLESSNESS. OLANZAPINE ADMINISTERED PER ORDERS. PT PRESENTLY SLEEPING, APPEARS COMFORTABLE. RESPS REGULAR, NON-LABORED. WILL CONT TO MONITOR.
[2020-02-09 04:48] LABS: BASOPHILS ABSOLUTE AUTO 0.04 K/mm3 (0.00-0.23); BASOPHILS PERCENT AUTO 0 % (0-2); EOSINOPHILS ABSOLUTE AUTO 0.27 K/mm3 (0.00-0.68); EOSINOPHILS PERCENT AUTO 3 % (0-6); Hematocrit 35.9 % (33.0-51.0); Hemoglobin 10.8 g/dL (11.5-16.0); IMMATURE GRAN ABSOLUTE AUTO 0.05 K/mm3 (0.00-0.10); IMMATURE GRAN PERCENT AUTO 1 % (0-1); LYMPHOCYTES ABSOLUTE AUTO 1.12 K/mm3 (0.84-5.20); LYMPHOCYTES PERCENT AUTO 11 % (21-46); MONOCYTES ABSOLUTE AUTO 0.86 K/mm3 (0.16-1.47); MONOCYTES PERCENT AUTO 8 % (4-13); Mean Corpuscular HGB Conc 30.1 g/dL (31.5-36.5); Mean Corpuscular Volume 100 fL (80-100); Mean Platelet Volume 12.2 fL (9.1-12.4); NEUTROPHILS ABSOLUTE AUTO 8.31 K/mm3 (1.96-9.15); NEUTROPHILS PERCENT AUTO 78 % (41-73); Platelet Count 128 K/mm3 (150-400); RDW Coefficient Variation 15.5 % (11.7-14.2); RDW Standard Deviation 56.7 fL (35.1-46.3); White Blood Cell Count 10.65 K/mm3 (4.00-11.30)
--- NOTE | 2020-02-09 05:03 | NUR ---
SHIFT SUMMARY: VSS. AFEB. AA0 TO SELF. DISORIENTED TO DATE, LOCATION, AND SITUATION. MUCH ANXIETY AND AGITATION AT THE START OF THE SHIFT. PT HAS CALMED DOWN SIGNIFICANTLY AND SLEPT WELL THROUGH MUCH OF THE NIGHT EXCEPT TO VOID AND EAT SNACKS. T/F WITH CGA. GAIT UNSTEADY. FREQUENT ATTEMPTS TO SELF T/F SETTING BED ALARM OFF. REMAINS ON CAMERA. IMPULSIVE AND FAST W/MOVEMENTS. UNAWARE OF LIMITATIONS. SOB W/EXERTION. INSPIRATORY CRACKLES AUSCULTATED THROUGHOUT LUNGS. OCCASIONAL PRODUCTIVE COUGH W/[place]EN [place] COLORED SPUTUM. 02 SATS 99% ON 2L VIA NC. CONTINENT OF URINE. CIWA SCORE IMPROVED W/ADMINISTRATION OF ATIVAN. NO ACUTE CHANGES TONIGHT. WILL CONT TO MONITOR.
[2020-02-09 05:12] LABS: Anion Gap 3 mmol/L (6-16); Blood Urea Nitrogen 23 mg/dL (8-24); Bun/Creatinine Ratio 38.3 (12.0-20.0); CO2, Blood 38 mmol/L (21-32); Calcium, Blood 7.8 mg/dL (8.5-10.1); Chloride, Blood 99 mmol/L (98-108); Glomerular Filtration Rate >60 (60-); Glucose, Blood 83 mg/dL (70-99); Magnesium, Blood 2.1 mg/dL (1.6-2.4); Potassium, Blood 3.7 mmol/L (3.5-5.5); Sodium, Blood 140 mmol/L (136-145)
[2020-02-09] MEDS ORDERED: CARV3.125 PO (10:53)
[2020-02-09] MEDS ORDERED: LISI5 PO (10:54)
[2020-02-09] MEDS ORDERED: POTA10T PO (10:57)
[2020-02-09] MEDS ORDERED: B-1100 M1 PO (10:59)
[2020-02-09] MEDS ORDERED: SPIR25 PO (10:59)
[2020-02-09] MEDS ORDERED: FURO40 PO (11:01)
--- NOTE | 2020-02-09 12:34 | NUR ---
PT DCD HOME PT DC HOME WITH 2 SONS. THEY WERE CALLED TO COME PICK HER UP THIS MORNING AND STATED THAT THEY WOULD NEED A RIDE TO COME GET HER. ALL DC INSTRUCTIONS AND MEDS WERE REVIEWED WITH THE PT WHO VERBALIZED AN UNDERSTANDING. MED REC FAXED TO PHARMACY ON FILE PER PT. IV'S REMOVED WITH NO ISSUE. PT HAS NO PCP AND WAS GIVEN A NEW PT PACKET FOR [facility], CARE MANAGEMENT WAS ALSO NOTIFIED OF THIS. PT STATED SHE WOULD CALL TO SCHEDULE APPT. PT IS UP DRESSED IN THE CHAIR AWAITING HER RIDE.
[2020-02-11] MEDS ORDERED: AZIT500 PO (08:19)
== END 2020-02-09 12:41 | disposition home or self-care (01) | DRG 291 ==
LOC: ER 10:47 → PCU 14:06 → MEDS 02-07 15:30
PROVIDERS: Emergency Medicine; ADMIT Internal Medicine
DX: I11.0 Hypertensive heart disease with heart failure (principal); J96.01 Acute respiratory failure with hypoxia; I47.2 Ventricular tachycardia; I42.7 Cardiomyopathy due to drug and external agent; I50.23 Acute on chronic systolic (congestive) heart failure; F17.210 Nicotine dependence, cigarettes, uncomplicated; S90.32XA Contusion of left foot, initial encounter; F41.1 Generalized anxiety disorder; Z95.810 Presence of automatic (implantable) cardiac defibrillator; F10.182 Alcohol abuse with alcohol-induced sleep disorder; F15.10 Other stimulant abuse, uncomplicated; F41.0 Panic disorder [episodic paroxysmal anxiety]; I27.20 Pulmonary hypertension, unspecified; E87.6 Hypokalemia; W19.XXXA Unspecified fall, initial encounter; Y92.9 Unspecified place or not applicable
CPT/HCPCS: 36415; 51702; 70450; 71045; 73630; 80048; 80053; 83735; 83880; 84484; 85025; 86850; 86900; 86901; 93005; 93010; 96374-59; 97112; 97116; 97162; 97165; 97530; 97535; 99285-25; A9270-GY; C8929; C9113; G0480; J1650; J1940; J2060; Q9957

== ENCOUNTER 2020-02-14 20:34 | Inpatient (IN) | payer MEDICARE ==
[~2020-02-14] VITALS: Ht 157.5 cm; Wt 52.9 kg
[~2020-02-14 20:34] MED LIST changes: +AZIT500 PO; +B-1100 M1 PO; +CARV3.125 PO; +FURO40 PO; +POTA10T PO; +QUETIAPINE FUMA25 MG PO
[2020-02-14 22:20] LABS: BASOPHILS ABSOLUTE AUTO 0.04 K/mm3 (0.00-0.23); BASOPHILS PERCENT AUTO 0 % (0-2); EOSINOPHILS ABSOLUTE AUTO 0.04 K/mm3 (0.00-0.68); EOSINOPHILS PERCENT AUTO 0 % (0-6); Hematocrit 34.7 % (33.0-51.0); Hemoglobin 10.8 g/dL (11.5-16.0); IMMATURE GRAN ABSOLUTE AUTO 0.05 K/mm3 (0.00-0.10); IMMATURE GRAN PERCENT AUTO 0 % (0-1); LYMPHOCYTES ABSOLUTE AUTO 0.81 K/mm3 (0.84-5.20); LYMPHOCYTES PERCENT AUTO 6 % (21-46); MONOCYTES ABSOLUTE AUTO 0.86 K/mm3 (0.16-1.47); MONOCYTES PERCENT AUTO 7 % (4-13); Mean Corpuscular HGB 29.9 pg (26.0-34.0); Mean Corpuscular HGB Conc 31.1 g/dL (31.5-36.5); Mean Corpuscular Volume 96 fL (80-100); Mean Platelet Volume 12.2 fL (9.1-12.4); NEUTROPHILS ABSOLUTE AUTO 11.38 K/mm3 (1.96-9.15); NEUTROPHILS PERCENT AUTO 86 % (41-73); Platelet Count 146 K/mm3 (150-400); RDW Coefficient Variation 15.9 % (11.7-14.2); RDW Standard Deviation 55.5 fL (35.1-46.3); Red Blood Cell Count 3.61 M/mm3 (3.80-5.20); White Blood Cell Count 13.18 K/mm3 (4.00-11.30)
[2020-02-14 22:34] LABS: International Normalized Ratio 1.06; Prothrombin Time Results 11.3 Sec (9.7-11.5)
[2020-02-14 22:40] LABS: Alanine Aminotransfer (ALT/SGP 69 U/L (12-78); Albumin, Blood 3.3 g/dL (3.4-5.0); Albumin/Globulin Ratio 0.8 (0.8-1.8); Alk Phos 141 U/L (50-136); Anion Gap 8 mmol/L (6-16); Aspartate Aminotrans (AST/SGOT 49 U/L (12-37); Bilirubin, Total 1.2 mg/dL (0.1-1.0); Blood Urea Nitrogen 32 mg/dL (8-24); Bun/Creatinine Ratio 50.2 (12.0-20.0); CO2, Blood 30 mmol/L (21-32); Calcium, Blood 8.8 mg/dL (8.5-10.1); Chloride, Blood 102 mmol/L (98-108); Creatinine, Blood 0.64 mg/dL (0.40-1.00); Globulin, Blood 4.4 g/dL (2.2-4.0); Glomerular Filtration Rate >60 (60-); Glucose, Blood 88 mg/dL (70-99); Potassium, Blood 3.7 mmol/L (3.5-5.5); Sodium, Blood 140 mmol/L (136-145); Total Protein, Blood 7.7 g/dL (6.4-8.2); Troponin I 0.033 ng/mL (0.000-0.040)
[2020-02-15 04:06] LABS: BASOPHILS ABSOLUTE AUTO 0.05 K/mm3 (0.00-0.23); BASOPHILS PERCENT AUTO 0 % (0-2); EOSINOPHILS ABSOLUTE AUTO 0.06 K/mm3 (0.00-0.68); EOSINOPHILS PERCENT AUTO 1 % (0-6); Hemoglobin 11.2 g/dL (11.5-16.0); IMMATURE GRAN ABSOLUTE AUTO 0.03 K/mm3 (0.00-0.10); IMMATURE GRAN PERCENT AUTO 0 % (0-1); LYMPHOCYTES ABSOLUTE AUTO 1.21 K/mm3 (0.84-5.20); LYMPHOCYTES PERCENT AUTO 10 % (21-46); MONOCYTES ABSOLUTE AUTO 1.07 K/mm3 (0.16-1.47); MONOCYTES PERCENT AUTO 9 % (4-13); Mean Corpuscular HGB 29.6 pg (26.0-34.0); Mean Corpuscular HGB Conc 31.1 g/dL (31.5-36.5); Mean Corpuscular Volume 95 fL (80-100); Mean Platelet Volume 12.5 fL (9.1-12.4); NEUTROPHILS ABSOLUTE AUTO 9.89 K/mm3 (1.96-9.15); NEUTROPHILS PERCENT AUTO 80 % (41-73); Platelet Count 154 K/mm3 (150-400); RDW Coefficient Variation 15.9 % (11.7-14.2); RDW Standard Deviation 54.8 fL (35.1-46.3); Red Blood Cell Count 3.78 M/mm3 (3.80-5.20); White Blood Cell Count 12.31 K/mm3 (4.00-11.30)
[2020-02-15 04:26] LABS: Alanine Aminotransfer (ALT/SGP 68 U/L (12-78); Albumin, Blood 3.3 g/dL (3.4-5.0); Albumin/Globulin Ratio 0.8 (0.8-1.8); Alk Phos 142 U/L (50-136); Anion Gap 6 mmol/L (6-16); Aspartate Aminotrans (AST/SGOT 50 U/L (12-37); Bilirubin, Total 1.3 mg/dL (0.1-1.0); Blood Urea Nitrogen 27 mg/dL (8-24); Bun/Creatinine Ratio 47.1 (12.0-20.0); CO2, Blood 34 mmol/L (21-32); Calcium, Blood 8.8 mg/dL (8.5-10.1); Chloride, Blood 100 mmol/L (98-108); Creatinine, Blood 0.57 mg/dL (0.40-1.00); Globulin, Blood 4.4 g/dL (2.2-4.0); Glomerular Filtration Rate >60 (60-); Glucose, Blood 85 mg/dL (70-99); Potassium, Blood 3.2 mmol/L (3.5-5.5); Sodium, Blood 140 mmol/L (136-145); Total Protein, Blood 7.7 g/dL (6.4-8.2)
--- NOTE | 2020-02-15 06:18 | NUR ---
PCU ADMIT / SHIFT SUMMARY PT BROUGHT TO PCU-09 FROM ER BY QUINN @ APPROX 0100. PT SLID OVER BY 4 STAFF MEMBERS. PT LETHARGIC, DIFFICULT TO AROUSE. ODELL PT ORIENTATION. SPO2 > 92% ON 4L UPON ARRIVAL TO PCU, TITRATED DOWN TO 1L NC THIS SHIFT. PT REPORTED TO BE RA @ BASELINE. MONITOR SHOWS SR-ST, HR 90's-110's. PACER NOTED TO L CHEST WALL. +4 EDEMA TO BILAT FEET NOTED. PHOTOS TAKEN OF PT's BLE REDNESS, ABRASIONS & SCABS. SEE PHOTOS IN CHART. PT SLEEPING HEAVILY MAJORITY OF SHIFT, DOES WAKE AGITATED, MOANING, AND ATTEMPTING TO GET OOB, UNABLE TO REDIRECT PT. PRN ATIVAN PER EMAR GIVEN X1 THIS SHIFT. PT INCONTINENT, WEARING ATTENDS, SATURATING ATTENDS & BED MULTIPLE TIMES THIS SHIFT W/ EACH VOID. PT NOTED TO HAVE RECIEVED LASIX IN ER. CALL TO MD MARCANO THIS AM TO REPORT LOW K LEVEL W/ ORDER FOR IV K CL SUPPLEMENTATION, SEE EMAR. WILL CONTINUE TO MONITOR AND PROVIDE CARE UNTIL REPORT OFF TO DAY SHIFT RN.
--- NOTE | 2020-02-15 07:39 | NUR ---
Assisted the pt to stand and get to Bedside commode. 1 person moderate assist. Pt had been incontinent, but was able to void as well. Mostly incoherent mumbling, but following directions well. Bed alarm on for safety.
[2020-02-15 10:26] LABS: Source, Urine Clean Catch
[2020-02-15 10:34] LABS: Bilirubin, Urine Neg (Neg); Blood, Urine Neg (Neg); Glucose Qualitative, Urine Neg (Neg); Ketones, Urine Neg (Neg); Leukocyte Esterase, Urine Neg (Neg); Nitrite, Urine Neg (Neg); Protein, Urine 1+ (Neg); Urobilinogen, Urine NORM (Normal)
[2020-02-15 10:35] LABS: Appearance, Urine Clear (Clear); Color, Urine Yellow (P-Yellow)
--- NOTE | 2020-02-15 16:26 | NUR ---
PCU DAYSHIFT/TRANSFER SUMMARY PATIENT ORIENTED TO SELF. CONFUSED TO LOCATION AND TIME/DATE. PATIENT MOANS IN PAIN OFTEN. PATIENT ALSO CALLS OUT THAT SHE IS HUNGRY AND/OR HAS TO URINATE. BED ALARM LEFT IN PLACE PATIENT DOES NOT SEEM TO BE COMPREHENDING WELL. RESP E/U ON ROOM AIR. PATIENT MED NO TELE - NO CARDIAC EVENTS NOTED PER RECEIVING CLERK PRIOR TO TELE REMOVAL. PATIENT AMBULATED AROUND HALLS WITH PT/OT. PATIENT VOIDING CLEAR YELLOW URINE. REPORTED OFF TO JELLY Venegas, MEDICAL FLOOR RN. PATIENT TRANSPORTED TO MEDICAL FLOOR AT 1610 IN NO ACUTE DISTRESS.
--- NOTE | 2020-02-15 18:42 | NUR ---
alert at baseline, trying to get her to use call light rather than call out, call light in reach, saline locked, rm air, bsr given to noc shift but pt slept through it, which has been her mo (sleeps, eats,sleeps, urinates, sleeps), very directable
[2020-02-16 04:38] LABS: BASOPHILS ABSOLUTE AUTO 0.05 K/mm3 (0.00-0.23); BASOPHILS PERCENT AUTO 0 % (0-2); EOSINOPHILS ABSOLUTE AUTO 0.17 K/mm3 (0.00-0.68); EOSINOPHILS PERCENT AUTO 1 % (0-6); Hematocrit 35.9 % (33.0-51.0); Hemoglobin 11.1 g/dL (11.5-16.0); IMMATURE GRAN ABSOLUTE AUTO 0.06 K/mm3 (0.00-0.10); IMMATURE GRAN PERCENT AUTO 1 % (0-1); LYMPHOCYTES ABSOLUTE AUTO 1.95 K/mm3 (0.84-5.20); LYMPHOCYTES PERCENT AUTO 16 % (21-46); MONOCYTES ABSOLUTE AUTO 1.15 K/mm3 (0.16-1.47); MONOCYTES PERCENT AUTO 10 % (4-13); Mean Corpuscular HGB 29.7 pg (26.0-34.0); Mean Corpuscular HGB Conc 30.9 g/dL (31.5-36.5); Mean Corpuscular Volume 96 fL (80-100); Mean Platelet Volume 11.8 fL (9.1-12.4); NEUTROPHILS ABSOLUTE AUTO 8.48 K/mm3 (1.96-9.15); NEUTROPHILS PERCENT AUTO 72 % (41-73); Platelet Count 147 K/mm3 (150-400); RDW Coefficient Variation 16.4 % (11.7-14.2); RDW Standard Deviation 55.2 fL (35.1-46.3); Red Blood Cell Count 3.74 M/mm3 (3.80-5.20); White Blood Cell Count 11.86 K/mm3 (4.00-11.30)
[2020-02-16 04:45] LABS: Albumin, Blood 2.9 g/dL (3.4-5.0); Anion Gap 8 mmol/L (6-16); Blood Urea Nitrogen 28 mg/dL (8-24); Bun/Creatinine Ratio 41.6 (12.0-20.0); CO2, Blood 30 mmol/L (21-32); Chloride, Blood 100 mmol/L (98-108); Creatinine, Blood 0.67 mg/dL (0.40-1.00); Glomerular Filtration Rate >60 (60-); Glucose, Blood 97 mg/dL (70-99); Magnesium, Blood 2.2 mg/dL (1.6-2.4); Phosphorus, Blood 2.9 mg/dL (2.5-4.9); Potassium, Blood 4.2 mmol/L (3.5-5.5); Sodium, Blood 138 mmol/L (136-145)
--- NOTE | 2020-02-16 19:43 | NUR ---
alert at baseline, when awake wants to eat, or urinate also is either chold or hot, stated she was unable pull a blanket up around her shoulders from the bed, very forgetful
--- NOTE | 2020-02-17 07:32 | NUR ---
02/17/20 0610 CIWA SCALE UP AND DOWN THIS SHIFT. PT YELLING REPEATED PHRASES LIKE"I'M COLD" OR "I'M SCARED." WARM BLANKETS GIVEN BUT THEN SHE WILL REMOVE THEM AND C/O BEING COLD. STAFF RE-ORIENTED HER FREQUENTLY. MEDICATED PRN FOR HIGH CIWA PER NOV. PT ONLY ALERT TO SELF. REPOSITIONED Q 2 HOURS. BED ALARM AND CONTINUOUS VIDEO MONITORING FOR SAFETY. INCONTINENT OF URINE ONLY THIS SHIFT.
--- NOTE | 2020-02-18 04:42 | NUR ---
SHIFT SUMMARY: VSS. AFEB. AAOX1. YELLS, "HELP ME" OFTEN WHILE AWAKE. STATES SHE IS OK AND SHE IS SCARED ALL IN THE SAME SENTENCE. MED X2 W/TYLENOL FOR BACK PAIN W/GOOD EFFECT. ATTEMPTS SELF T/F- IMPULSIVE- SOUNDS BED ALARM OFF. ENCOURAGED PT TO USE CALL BUTTON. MEDICATED W/LIBRIUM X 2 TONIGHT FOR INCREASED ANXIETY, YELLING, AND TREMORING. HELPFUL. LSCTA. OCCASIONAL PRODUCTIVE SOUNDING COUGH. ENCOURAGED TCDB. LLE NOTED TO BE RED AND EDEMATOUS ALONG THE MEDIAL ANKLE. WILL INFORM DAY SHIFT RN. NO ACUTE CHANGES OVERNIGHT. BED LOW, BED ALARM ON, VIDEO MONITORING IN PLACE. WILL CONT TO MONITOR.
[2020-02-18 04:59] LABS: Albumin, Blood 2.5 g/dL (3.4-5.0); Anion Gap 7 mmol/L (6-16); Blood Urea Nitrogen 20 mg/dL (8-24); CO2, Blood 32 mmol/L (21-32); Calcium, Blood 8.2 mg/dL (8.5-10.1); Chloride, Blood 98 mmol/L (98-108); Creatinine, Blood 0.63 mg/dL (0.40-1.00); Glomerular Filtration Rate >60 (60-); Glucose, Blood 84 mg/dL (70-99); Phosphorus, Blood 3.3 mg/dL (2.5-4.9); Potassium, Blood 3.2 mmol/L (3.5-5.5); Sodium, Blood 137 mmol/L (136-145)
[2020-02-18] MEDS ORDERED: K-Dur10 MEQ PO ×2 (15:32)
[2020-02-18] MEDS ORDERED: FUROSEMIDE40 MG PO ×2 (15:32)
[2020-02-18] MEDS ORDERED: B-1100 M1 PO ×2 (15:33)
[2020-02-18] MEDS ORDERED: SPIRONOLACTONE25 MG PO ×2 (15:34)
--- NOTE | 2020-02-18 16:04 | NUR ---
SUMMARY PT IS A/O X1-2, SHE HAS BEEN UP & DOWN FROM CHAIR TO BED TODAY, SBA w FWW, GAIT WEAK/UNSTEADY. SHE C/O CHR BACK & L ANKLE PAIN. HAVE GIVEN PRN TYLENOL & PROVIDED HEATING PAD FOR RELIEF. DR BAHENA NOTIFIED OF L ANKLE PAIN, REDNESS, SLIGHT SWELLING. PT APPEARS FATIGUED, SPEECH SLOW. SHE STATE ANXIETY, @ X'S YELLS OUT, CIWA 6-8. HAVE GIVEN ATIVAN & LIBRIUM TODAY FOR W/D SYMPTOMS. VSS. POULTRY PINNER STATE PLAN FOR ASSISTED LIVING PLACEMENT @ THIS TIME.
--- NOTE | 2020-02-18 23:46 | NUR ---
PAIN PT REPORTS 7/10 PAIN IN BLE/BACK & ARMS. REPORTS REPOSITIONING & TYLENOL DID NOT HELP W/HER PAIN. I WAS INFORMED PT HAS NOT SLEPT THE PREVIOUS NIGHT OR DURING DAY SHIFT. NOTIFIED KAMRYN Paniagua & SHE ORDERED A OT DOSE OF IV TORADOL & PRN MELATONIN @BEDTIME. WILL GIVE MEDS PER ORDERS & CONTINUE TO MONITOR PT.
--- NOTE | 2020-02-19 04:12 | NUR ---
BM/SHOWER *LATE ENTRY* AROUND 0215 PT WAS FOUND LYING IN CHAIR PLAYING W/FECES. FECES WAS SMEARED ALLOVER BEDSIDE TABLE, PTS ARMS & LEGS. THEREFORE PT WAS GIVEN A SHOWER & ALL LINEN WAS CHANGED. CALL LIGHT IN REACH & BED ALARM IN PLACE.
[2020-02-19 05:46] LABS: Magnesium, Blood 2.2 mg/dL (1.6-2.4)
[2020-02-19 05:48] LABS: Albumin, Blood 2.7 g/dL (3.4-5.0); Anion Gap 3 mmol/L (6-16); Blood Urea Nitrogen 25 mg/dL (8-24); Bun/Creatinine Ratio 33.2 (12.0-20.0); CO2, Blood 30 mmol/L (21-32); Calcium, Blood 8.2 mg/dL (8.5-10.1); Chloride, Blood 100 mmol/L (98-108); Creatinine, Blood 0.75 mg/dL (0.40-1.00); Glomerular Filtration Rate >60 (60-); Glucose, Blood 78 mg/dL (70-99); Phosphorus, Blood 3.2 mg/dL (2.5-4.9); Potassium, Blood 4.8 mmol/L (3.5-5.5); Sodium, Blood 133 mmol/L (136-145)
--- NOTE | 2020-02-19 07:48 | NUR ---
IV REMOVAL *LATE ENTRY* CAME BACK FROM LUNCH @0315 & WAS INFORMED BY MARITZA Poole RN THAT PT PULLED OUT IV. I WAS ABLE TO REPLACE A NEW IV IN [facility].
--- NOTE | 2020-02-19 07:49 | NUR ---
SHIFT SUMMARY AOX3, CAN ANSWER MOST ORIENTATION QUESTIONS CORRECTLY DURING ASSESSMENT. HOWEVER VERY FORGETFUL & CONFUSED @TIMES. IMPULSIVE & ATTEMPTS TO GET OOB & OUT OF CHAIR FREQUENTLY WHILE AWAKE. YELLS OUT "HELP" ALONG WITH OTHER THINGS FREQUENTLY. BED ALARM & CHAIR ALARM IN PLACE WHILE IN ROOM. FREQUENTLY NEEDS TO BE PLACED NEXT TO NURSE VIDEOGRAPHER DESK IN [place] FOR SUPERVISION. REPORTS PAIN IN L ANKLE & BACK, MEDICATED 1X W/TYLENOL & STATED NO RELIEF, THEN MEDICATED 1X W/TORADOL & PT WAS ABLE TO FALL ASLEEP. CIWA 9-11, MEDICATED 1X W/LIBRIUM LAST NIGHT & 1X W/2MG ATIVAN THIS AM. PT ABLE TO GET A FEW HOURS OF SLEEP AFTER TAKING MELATONIN LAST NIGHT. READ PREVIOUS NOTES. HAS 2 OPEN ULCERS ON L ANKLE ALONG W/ EDEMA & REDNESS, CLEANED & MEPILEX PLACED.
--- NOTE | 2020-02-19 18:10 | NUR ---
SUMMARY PT WAS VERY DROWSY THIS AM, DR BAHENA IN TO ASSESS, REVIEW MEDS, STOP ETOH W/D TYPE MEDS & START SEROQUEL THIS ISMA FOR ANXIETY/AGITATION. PT CONTINUES SOMEWHAT CONFUSED/DISORIENTED w SLOW SPEECH. SHE HAS BEEN UP w PHYTHER & STAFF AMBULATING w FWW IN [place] & TO BR. SHE CONTINUES TO YELL OUT FREQUENTLY, "HELP", "I GOTTA GET OUTA HERE" ETC. MECHANIC GENERAL OPERATIONAL TESTLAW CLERK CONTINUES UNABLE TO CONTACT FAMILY. WE HAVE HAD NO FAMILY CALLS TODAY. US L ANKLE NEG FOR CLOT. VSS.
--- NOTE | 2020-02-20 06:35 | NUR ---
SHIFT SUMMARY AOX2-UNAWARE SITUATION, DATE, PLACE, THINKS SHE IS @HOME BUT KNOWS SHE IS IN CHALLENGE. IMPULSIVE, FORGETS WHAT IS TALKED ABOUT WITHIN SECONDS. YELLS OUT FREQUENTLY. STATES THINGS REPETITIVLEY, SUCH "HELP ME" "FEED ME" "I'M HUNGRY" "LEAVE ME ALONE". REPORTS FEELING "SCARED & AFRAID" MULTIPLE TIMES, ASKS THIS NURSE TO "GET ME OUT OF HERE," "TAKE ME HOME." MEDICATED 3X W/12.5MG SEROQUEL, PT CALMS DOWN AFTER AN HOUR OF TAKING MEDICATION BUT THEN AROUND 3 HOURS AFTER TAKING MED PT IS AGITATED, RESTLESS, YELLING, TRYING TO GET OOB OR OR OUT OF CHAIR. PT WAS ABLE TO GET ROUGHLY 3 HOURS OF REST TOTAL. VSS. REPORTED 7/10 PAIN IN BACK & MEDICATED 1X W/TYLENOL. ASSISTED PT IN EATING MULTIPLE SNACK T/O NIGHT. HAD HARD BROWN PAINFUL BM THIS MORNING. CALL LIGHT IN REACH.
[2020-02-20 06:41] LABS: Albumin, Blood 2.7 g/dL (3.4-5.0); Anion Gap 2 mmol/L (6-16); Blood Urea Nitrogen 21 mg/dL (8-24); Bun/Creatinine Ratio 39.1 (12.0-20.0); CO2, Blood 32 mmol/L (21-32); Calcium, Blood 8.6 mg/dL (8.5-10.1); Chloride, Blood 103 mmol/L (98-108); Creatinine, Blood 0.54 mg/dL (0.40-1.00); Glomerular Filtration Rate >60 (60-); Glucose, Blood 87 mg/dL (70-99); Phosphorus, Blood 3.8 mg/dL (2.5-4.9); Potassium, Blood 5.1 mmol/L (3.5-5.5); Sodium, Blood 137 mmol/L (136-145)
[2020-02-20] MEDS ORDERED: DOCU100 PO ×2 (10:05)
[2020-02-20] MEDS ORDERED: ACET325 PO ×2 (10:05)
[2020-02-20] MEDS ORDERED: LIDO700A20 TOP ×2 (10:06)
[2020-02-20] MEDS ORDERED: Hair, Skin & N1 EACH PO ×2 (10:07)
[2020-02-20] MEDS ORDERED: MELATONIN5 M1 PO ×2 (10:07)
[2020-02-20] MEDS ORDERED: QUET25 PO ×2 (10:08)
--- NOTE | 2020-02-20 13:05 | NUR ---
PATIENT DISCHARGED TO HOME, PICKED UP BY GRAND DAUGHTER ROBBY. GAVE PATIENT INSTRUCTIONS TO GRAND DAUGHTER, WHO STATED "I'M NOT SIGNING ANYTHING ACCEPTING RESPONSIBILITY FOR HER. I'M JUST PICKING HER UP." ROBBY STATED THAT SHE WAS TAKING PATIENT TO APPOINTMENT AT PCP'S OFFICE AND THEN HOME. WHEN ASKED IF ANYONE WOULD BE HOME TO TAKE CARE OF PATIENT, SHE STATED "I HOPE SO." THIS INFORMATION RELAYED TO Francisco FRASER AND Ijeoma ALVARADO, ASTROPHYSICS PROFESSOR'S.
== END 2020-02-20 12:01 | disposition home health service (06) | DRG 292 ==
LOC: ER 20:34 → PCU 20:35 → MEDS 02-15 16:10
PROVIDERS: Internal Medicine; Physician Assistant; ADMIT Internal Medicine
DX: I50.23 Acute on chronic systolic (congestive) heart failure (principal); I42.8 Other cardiomyopathies; F03.91 Unspecified dementia, unspecified severity, with behavioral disturbance; F15.10 Other stimulant abuse, uncomplicated; F41.1 Generalized anxiety disorder; F17.210 Nicotine dependence, cigarettes, uncomplicated; Z59.0 Homelessness; I08.1 Rheumatic disorders of both mitral and tricuspid valves; E87.6 Hypokalemia; G89.4 Chronic pain syndrome; R62.7 Adult failure to thrive; F10.20 Alcohol dependence, uncomplicated; S96.911A Strain of unspecified muscle and tendon at ankle and foot level, right foot, initial encounter; Y92.9 Unspecified place or not applicable
CPT/HCPCS: 36415; 71045; 80053; 80069; 83735; 83880; 84484; 85025; 85610; 87040; 93005; 93010; 93971; 96365; 96366; 96372; 96375; 96376; 97112; 97116; 97162; 97166; 97530; 97535; 99285-25; A9270; A9270-GY; G0378; J0290; J1630; J1650; J1885; J1940; J2060; J3480; J7050

== ENCOUNTER 2020-02-25 04:52 | Observation (INO) | payer MEDICARE ==
[~2020-02-25] VITALS: Ht 157.5 cm; Wt 45.4 kg
[~2020-02-25 04:52] MED LIST changes: +ACET325 PO; +DOCU100 PO; +FUROSEMIDE40 MG PO; +Hair, Skin & N1 EACH PO; +K-Dur10 MEQ PO; +LIDO700A20 TOP; +MELATONIN5 M1 PO; +SPIRONOLACTONE25 MG PO
[2020-02-25 05:50] LABS: Source, Urine Clean Catch
[2020-02-25 05:56] LABS: Blood, Urine 2+ (Neg); Glucose Qualitative, Urine 1+ (Neg); Ketones, Urine 1+ (Neg); Leukocyte Esterase, Urine 3+ (Neg); Nitrite, Urine Neg (Neg); Protein, Urine 3+ (Neg); Specific Gravity, Urine 1.025 (1.003-1.022); Urobilinogen, Urine 2+ (Normal); pH, Urine 6.5 (5.0-8.0)
[2020-02-25 06:07] LABS: BASOPHILS ABSOLUTE AUTO 0.11 K/mm3 (0.00-0.23); BASOPHILS PERCENT AUTO 1 % (0-2); EOSINOPHILS ABSOLUTE AUTO 0.12 K/mm3 (0.00-0.68); EOSINOPHILS PERCENT AUTO 1 % (0-6); Hematocrit 38.9 % (33.0-51.0); Hemoglobin 11.7 g/dL (11.5-16.0); IMMATURE GRAN PERCENT AUTO 1 % (0-1); LYMPHOCYTES ABSOLUTE AUTO 1.06 K/mm3 (0.84-5.20); LYMPHOCYTES PERCENT AUTO 8 % (21-46); MONOCYTES ABSOLUTE AUTO 0.88 K/mm3 (0.16-1.47); MONOCYTES PERCENT AUTO 7 % (4-13); Mean Corpuscular HGB 29.5 pg (26.0-34.0); Mean Corpuscular HGB Conc 30.1 g/dL (31.5-36.5); Mean Corpuscular Volume 98 fL (80-100); Mean Platelet Volume 11.6 fL (9.1-12.4); NEUTROPHILS ABSOLUTE AUTO 10.97 K/mm3 (1.96-9.15); NEUTROPHILS PERCENT AUTO 83 % (41-73); Platelet Count 365 K/mm3 (150-400); RDW Standard Deviation 61.1 fL (35.1-46.3); Red Blood Cell Count 3.96 M/mm3 (3.80-5.20); White Blood Cell Count 13.24 K/mm3 (4.00-11.30)
[2020-02-25 06:08] LABS: Bilirubin, Urine 1+ (Neg)
[2020-02-25 06:11] LABS: Appearance, Urine Clear (Clear); Color, Urine Yellow (P-Yellow)
[2020-02-25 06:12] LABS: Bacteria Mod /hpf; Red Blood Cells, Urine 0-2 /hpf (0-2); Squamous Epithelial Cells Few /hpf (Few)
[2020-02-25 06:17] LABS: U Amphetamine Screen Not Detected; U Barbituate Screen Not Detected; U Benzodiazapine Screen DETECTED; U Buprenorphine Screen Not Detected; U Cannabinoids Screen DETECTED; U Cocaine Screen Not Detected; U Methadone Screen Not Detected; U Methamphetamine Screen Not Detected; U Opiates Screen Not Detected; U Oxycodone Screen Not Detected; U Phencyclidine Screen Not Detected; U Propoxyphene Screen Not Detected
[2020-02-25 06:23] LABS: Ethanol (Alcohol), Blood, Med <3 mg/dL; Salicylate <1.7 mg/dL (2.8-20.0)
[2020-02-25 06:24] LABS: Alanine Aminotransfer (ALT/SGP 88 U/L (12-78); Albumin, Blood 3.5 g/dL (3.4-5.0); Albumin/Globulin Ratio 0.6 (0.8-1.8); Alk Phos 156 U/L (50-136); Anion Gap 2 mmol/L (6-16); Aspartate Aminotrans (AST/SGOT 93 U/L (12-37); Bilirubin, Total 0.5 mg/dL (0.1-1.0); Blood Urea Nitrogen 26 mg/dL (8-24); Bun/Creatinine Ratio 46.8 (12.0-20.0); CO2, Blood 30 mmol/L (21-32); Calcium, Blood 8.9 mg/dL (8.5-10.1); Chloride, Blood 106 mmol/L (98-108); Creatinine, Blood 0.56 mg/dL (0.40-1.00); Globulin, Blood 5.5 g/dL (2.2-4.0); Glomerular Filtration Rate >60 (60-); Glucose, Blood 111 mg/dL (70-99); Potassium, Blood 5.6 mmol/L (3.5-5.5); Sodium, Blood 138 mmol/L (136-145)
[2020-02-25 06:25] LABS: Acetaminophen, Random <2.0 ug/mL (10.0-30.0)
== END 2020-02-25 13:33 | disposition home or self-care (01) ==
LOC: ER 04:52 → EOR 04:53
PROVIDERS: Emergency Medicine; ADMIT Emergency Medicine
DX: F03.91 Unspecified dementia, unspecified severity, with behavioral disturbance (principal); F15.10 Other stimulant abuse, uncomplicated; F12.10 Cannabis abuse, uncomplicated; F10.10 Alcohol abuse, uncomplicated; F41.9 Anxiety disorder, unspecified; R45.1 Restlessness and agitation; N39.0 Urinary tract infection, site not specified; S51.812A Laceration without foreign body of left forearm, initial encounter; S80.812A Abrasion, left lower leg, initial encounter; X58.XXXA Exposure to other specified factors, initial encounter; F17.210 Nicotine dependence, cigarettes, uncomplicated; Z88.6 Allergy status to analgesic agent; Z79.899 Other long term (current) drug therapy
CPT/HCPCS: 36415; 80053; 81001; 81025; 85025; 87086; 96374; 96375; 99285-25; A9270-GY; G0378; G0480; J0696; J2060; J2550

== ENCOUNTER 2020-02-27 06:13 | Emergency (ER) | payer MEDICARE ==
[~2020-02-27] VITALS: Ht 157.5 cm; Wt 45.4 kg
== END 2020-02-27 06:29 | disposition home or self-care (01) ==
LOC: ER 06:13
DX: S90.812A Abrasion, left foot, initial encounter (principal); L97.429 Non-pressure chronic ulcer of left heel and midfoot with unspecified severity; F41.9 Anxiety disorder, unspecified; I50.22 Chronic systolic (congestive) heart failure; Z88.6 Allergy status to analgesic agent; Z79.899 Other long term (current) drug therapy; F17.200 Nicotine dependence, unspecified, uncomplicated; I42.8 Other cardiomyopathies; X58.XXXA Exposure to other specified factors, initial encounter
CPT/HCPCS: 99282

== ENCOUNTER 2020-02-27 10:48 | Emergency (ER) | payer MEDICARE ==
[~2020-02-27] VITALS: Ht 160 cm; Wt 52.2 kg
== END 2020-02-27 11:15 | disposition home or self-care (01) ==
LOC: ER 10:48
DX: Z00.00 Encounter for general adult medical examination without abnormal findings (principal); I50.22 Chronic systolic (congestive) heart failure; M54.5 Low back pain; G89.29 Other chronic pain; Z88.6 Allergy status to analgesic agent; Z79.899 Other long term (current) drug therapy; F17.200 Nicotine dependence, unspecified, uncomplicated; I42.8 Other cardiomyopathies
CPT/HCPCS: 99282

== ENCOUNTER → 2020-03-03 | Outpatient (CLI) | payer MEDICARE, OTHER ==
[2020-03-03 09:42] LABS: Source, Urine Clean Catch
[2020-03-03 11:12] LABS: Appearance, Urine Clear (Clear); Bilirubin, Urine Neg (Neg); Blood, Urine Neg (Neg); Color, Urine Pale Yellow (P-Yellow); Glucose Qualitative, Urine Neg (Neg); Ketones, Urine Neg (Neg); Leukocyte Esterase, Urine Neg (Neg); Nitrite, Urine Neg (Neg); Protein, Urine Neg (Neg); Urobilinogen, Urine NORM (Normal)
== END | disposition home or self-care (01) ==
LOC: LAB SHORT 08:15 → LAB 08:15
PROVIDERS: Physician Assistant
DX: N39.0 Urinary tract infection, site not specified (principal)
CPT/HCPCS: 81003

== ENCOUNTER 2020-09-28 18:29 | Emergency (ER) | payer MEDICARE, OTHER ==
[~2020-09-28] VITALS: Ht 157.5 cm; Wt 59.0 kg
[2020-09-28 20:52] LABS: BASOPHILS ABSOLUTE AUTO 0.05 K/mm3 (0.00-0.23); BASOPHILS PERCENT AUTO 1 % (0-2); EOSINOPHILS ABSOLUTE AUTO 0.29 K/mm3 (0.00-0.68); EOSINOPHILS PERCENT AUTO 4 % (0-6); Hematocrit 39.5 % (33.0-51.0); Hemoglobin 12.6 g/dL (11.5-16.0); IMMATURE GRAN ABSOLUTE AUTO 0.04 K/mm3 (0.00-0.10); IMMATURE GRAN PERCENT AUTO 1 % (0-1); LYMPHOCYTES ABSOLUTE AUTO 1.95 K/mm3 (0.84-5.20); LYMPHOCYTES PERCENT AUTO 25 % (21-46); MONOCYTES PERCENT AUTO 9 % (4-13); Mean Corpuscular HGB 32.1 pg (26.0-34.0); Mean Corpuscular HGB Conc 31.9 g/dL (31.5-36.5); Mean Corpuscular Volume 101 fL (80-100); Mean Platelet Volume 11.6 fL (9.1-12.4); NEUTROPHILS ABSOLUTE AUTO 4.73 K/mm3 (1.96-9.15); NEUTROPHILS PERCENT AUTO 61 % (41-73); Platelet Count 163 K/mm3 (150-400); RDW Coefficient Variation 12.5 % (11.7-14.2); RDW Standard Deviation 46.3 fL (35.1-46.3); Red Blood Cell Count 3.92 M/mm3 (3.80-5.20); White Blood Cell Count 7.76 K/mm3 (4.00-11.30)
[2020-09-28 21:18] LABS: Alanine Aminotransfer (ALT/SGP 22 U/L (12-78); Albumin, Blood 3.6 g/dL (3.4-5.0); Albumin/Globulin Ratio 1.1 (0.8-1.8); Alk Phos 88 U/L (50-136); Anion Gap 8 mmol/L (6-16); Aspartate Aminotrans (AST/SGOT 22 U/L (12-37); Bilirubin, Total 0.3 mg/dL (0.1-1.0); Blood Urea Nitrogen 18 mg/dL (8-24); Bun/Creatinine Ratio 32.4 (12.0-20.0); CO2, Blood 29 mmol/L (21-32); Calcium, Blood 8.8 mg/dL (8.5-10.1); Chloride, Blood 105 mmol/L (98-108); Creatinine, Blood 0.56 mg/dL (0.40-1.00); Free Thyroxine 0.69 ng/dL (0.70-1.60); Globulin, Blood 3.4 g/dL (2.2-4.0); Glomerular Filtration Rate >60 (60-); Glucose, Blood 93 mg/dL (70-99); Potassium, Blood 4.2 mmol/L (3.5-5.5); Sodium, Blood 142 mmol/L (136-145); Troponin I <0.015 ng/mL (0.000-0.040)
== END 2020-09-28 22:39 | disposition home or self-care (01) ==
LOC: ER 18:29
PROVIDERS: Emergency Medicine
DX: F41.0 Panic disorder [episodic paroxysmal anxiety] (principal); F41.9 Anxiety disorder, unspecified; J44.9 Chronic obstructive pulmonary disease, unspecified; K21.9 Gastro-esophageal reflux disease without esophagitis; I25.10 Atherosclerotic heart disease of native coronary artery without angina pectoris; F17.200 Nicotine dependence, unspecified, uncomplicated; Z79.899 Other long term (current) drug therapy; Z88.6 Allergy status to analgesic agent; Z88.8 Allergy status to other drugs, medicaments and biological substances
CPT/HCPCS: 36415; 80053; 84439; 84443; 84484; 85025; 99283-25

== ENCOUNTER → 2021-04-27 | Outpatient (CLI) | payer MEDICARE, OTHER ==
[2021-04-27 15:07] LABS: Appearance, Urine Clear (Clear); Bilirubin, Urine Neg (Neg); Blood, Urine Neg (Neg); Color, Urine Yellow (P-Yellow); Glucose Qualitative, Urine Neg (Neg); Ketones, Urine Neg (Neg); Leukocyte Esterase, Urine Neg (Neg); Nitrite, Urine Neg (Neg); Protein, Urine Neg (Neg); Urobilinogen, Urine NORM (Normal)
== END | disposition home or self-care (01) ==
LOC: LAB SHORT 11:30 → LAB 11:30
PROVIDERS: Physician Assistant
DX: N39.0 Urinary tract infection, site not specified (principal)
CPT/HCPCS: 81003

== ENCOUNTER → 2021-06-18 | Outpatient (CLI) | payer MEDICARE, OTHER ==
[2021-06-18 16:40] LABS: Appearance, Urine Clear (Clear); Bilirubin, Urine Neg (Neg); Blood, Urine Neg (Neg); Color, Urine Yellow (P-Yellow); Glucose Qualitative, Urine Neg (Neg); Ketones, Urine Neg (Neg); Leukocyte Esterase, Urine Neg (Neg); Nitrite, Urine Neg (Neg); Protein, Urine Neg (Neg); Urobilinogen, Urine NORM (Normal)
== END ==
LOC: LAB SHORT 12:13
PROVIDERS: Physician Assistant
DX: N39.0 Urinary tract infection, site not specified (principal)
CPT/HCPCS: 81003

== ENCOUNTER → 2021-08-07 | Outpatient (CLI) | payer MEDICARE, OTHER ==
[2021-08-07 13:48] LABS: Source, Urine Clean Catch
[2021-08-07 14:03] LABS: Appearance, Urine Clear (Clear); Bilirubin, Urine Neg (Neg); Blood, Urine Neg (Neg); Color, Urine Yellow (P-Yellow); Glucose Qualitative, Urine Neg (Neg); Ketones, Urine Neg (Neg); Leukocyte Esterase, Urine Neg (Neg); Nitrite, Urine Neg (Neg); Protein, Urine Neg (Neg); Specific Gravity, Urine 1.015 (1.003-1.022); Urobilinogen, Urine NORM (Normal)
== END | disposition home or self-care (01) ==
LOC: LAB SHORT 12:55 → LAB 12:55
PROVIDERS: Physician Assistant
DX: N39.0 Urinary tract infection, site not specified (principal)
CPT/HCPCS: 81003

== ENCOUNTER → 2021-08-26 | Outpatient (CLI) | payer MEDICARE, OTHER ==
[2021-09-16 13:13] LABS: Stool Occult Bld Immuno 1 Negative (NEGATIVE)
== END ==
LOC: LAB 16:20 → LAB SHORT 16:20
PROVIDERS: Physician Assistant
DX: Z12.11 Encounter for screening for malignant neoplasm of colon (principal)
CPT/HCPCS: G0328

== ENCOUNTER → 2022-10-05 | Outpatient (CLI) | payer MEDICARE, OTHER ==
[2022-10-05 15:11] LABS: Albumin, Blood 3.9 g/dL (3.4-5.0); Albumin/Globulin Ratio 1.3 (0.8-1.8); Bilirubin, Total 0.2 mg/dL (0.1-1.0); Calcium, Blood 9.2 mg/dL (8.5-10.1); Creatinine, Blood 0.64 mg/dL (0.40-1.00); Globulin, Blood 3.1 g/dL (2.2-4.0); Potassium, Blood 4.3 mmol/L (3.5-5.5)
[2022-10-05 17:22] LABS: BASOPHILS PERCENT AUTO 0 % (0-2); EOSINOPHILS ABSOLUTE AUTO 0.03 K/mm3 (0.00-0.68); EOSINOPHILS PERCENT AUTO 1 % (0-6); Hematocrit 37.6 % (33.0-51.0); Hemoglobin 12.5 g/dL (11.5-16.0); IMMATURE GRAN ABSOLUTE AUTO 0.02 K/mm3 (0.00-0.10); IMMATURE GRAN PERCENT AUTO 0 % (0-1); LYMPHOCYTES ABSOLUTE AUTO 1.19 K/mm3 (0.84-5.20); LYMPHOCYTES PERCENT AUTO 26 % (21-46); MONOCYTES ABSOLUTE AUTO 0.37 K/mm3 (0.16-1.47); MONOCYTES PERCENT AUTO 8 % (4-13); Mean Corpuscular HGB 33.7 pg (26.0-34.0); Mean Corpuscular HGB Conc 33.2 g/dL (31.5-36.5); Mean Corpuscular Volume 101 fL (80-100); Mean Platelet Volume 11.6 fL (9.1-12.4); NEUTROPHILS ABSOLUTE AUTO 2.96 K/mm3 (1.96-9.15); NEUTROPHILS PERCENT AUTO 65 % (41-73); Platelet Count 159 K/mm3 (150-400); RDW Standard Deviation 48.7 fL (35.1-46.3); Red Blood Cell Count 3.71 M/mm3 (3.80-5.20); White Blood Cell Count 4.57 K/mm3 (4.00-11.30)
[2022-10-05 18:12] LABS: CHOL/HDL RATIO 3.5; Cholesterol 235 mg/dL (50-200); HDL Cholesterol 68 mg/dL (>39); LDL/HDL RATIO 2.2; Low Density Lipoprotein Chol 147 mg/dL (0-110); Triglycerides 99 mg/dL (30-160); Very Low Density Lipoprot Chol 19 mg/dL (6-32)
== END | disposition home or self-care (01) ==
LOC: LAB SHORT 09:15
PROVIDERS: Physician Assistant
DX: Z01.89 Encounter for other specified special examinations (principal); Z79.899 Other long term (current) drug therapy
CPT/HCPCS: 80053; 80061; 83036; 85025

== ENCOUNTER 2023-01-13 17:45 | Emergency (ER) | payer MEDICARE, OTHER ==
[~2023-01-13] VITALS: Ht 157.5 cm; Wt 63.5 kg
[2023-01-13 17:49] VITALS: BP 125/92
== END 2023-01-13 19:25 | disposition home or self-care (01) ==
LOC: ER 17:45
DX: M79.671 Pain in right foot (principal); Z88.8 Allergy status to other drugs, medicaments and biological substances; Z88.6 Allergy status to analgesic agent; Z79.899 Other long term (current) drug therapy; I50.22 Chronic systolic (congestive) heart failure; J44.9 Chronic obstructive pulmonary disease, unspecified; K21.9 Gastro-esophageal reflux disease without esophagitis; F17.200 Nicotine dependence, unspecified, uncomplicated
CPT/HCPCS: 73630; 99283-25

== ENCOUNTER → 2023-07-04 | Outpatient (CLI) | payer MEDICARE, OTHER ==
[2023-07-06 15:19] LABS: Stool Occult Bld Immuno 1 Negative (NEGATIVE)
== END ==
LOC: LAB 11:30 → LAB SHORT 11:30
PROVIDERS: Physician Assistant
DX: Z12.11 Encounter for screening for malignant neoplasm of colon (principal)
CPT/HCPCS: G0328

== ENCOUNTER 2025-02-06 14:19 | Emergency (ER) | payer MEDICARE, OTHER ==
[~2025-02-06] VITALS: Ht 160 cm; Wt 72.6 kg
[2025-02-06 14:46] VITALS: BP 134/68
== END 2025-02-06 16:29 | disposition home or self-care (01) ==
LOC: ER 14:19
DX: N64.4 Mastodynia (principal); I42.8 Other cardiomyopathies; I50.22 Chronic systolic (congestive) heart failure; J44.9 Chronic obstructive pulmonary disease, unspecified; K21.9 Gastro-esophageal reflux disease without esophagitis; I25.10 Atherosclerotic heart disease of native coronary artery without angina pectoris; F03.90 Unspecified dementia, unspecified severity, without behavioral disturbance, psychotic disturbance, mood disturbance, and anxiety; F17.200 Nicotine dependence, unspecified, uncomplicated; Z95.810 Presence of automatic (implantable) cardiac defibrillator; Z88.6 Allergy status to analgesic agent; Z88.8 Allergy status to other drugs, medicaments and biological substances
CPT/HCPCS: 71046; 99283-25

== ENCOUNTER 2025-03-14 04:44 | Emergency (ER) | payer MEDICARE, OTHER ==
[~2025-03-14] VITALS: Ht 157.5 cm; Wt 72.6 kg
[2025-03-14] MEDS ORDERED: Ondansetron HCl 2 MG / ML 2ML Vial IV PRN (04:55)
[2025-03-14 05:00] LABS: BASOPHILS ABSOLUTE AUTO 0.01 K/mm3 (0.00-0.23); BASOPHILS PERCENT AUTO 0 % (0-2); EOSINOPHILS ABSOLUTE AUTO 0.12 K/mm3 (0.00-0.68); EOSINOPHILS PERCENT AUTO 2 % (0-6); Hematocrit 38.1 % (33.0-51.0); Hemoglobin 12.5 g/dL (11.5-16.0); IMMATURE GRAN ABSOLUTE AUTO 0.02 K/mm3 (0.00-0.10); IMMATURE GRAN PERCENT AUTO 0 % (0-1); LYMPHOCYTES ABSOLUTE AUTO 1.81 K/mm3 (0.84-5.20); LYMPHOCYTES PERCENT AUTO 26 % (21-46); MONOCYTES ABSOLUTE AUTO 0.53 K/mm3 (0.16-1.47); MONOCYTES PERCENT AUTO 8 % (4-13); Mean Corpuscular HGB 33.2 pg (26.0-34.0); Mean Corpuscular HGB Conc 32.8 g/dL (31.5-36.5); Mean Corpuscular Volume 101 fL (80-100); Mean Platelet Volume 11.4 fL (9.1-12.4); NEUTROPHILS ABSOLUTE AUTO 4.49 K/mm3 (1.96-9.15); NEUTROPHILS PERCENT AUTO 64 % (41-73); Platelet Count 166 K/mm3 (150-400); RDW Coefficient Variation 12.9 % (11.7-14.2); RDW Standard Deviation 48.2 fL (35.1-46.3); Red Blood Cell Count 3.76 M/mm3 (3.80-5.20); White Blood Cell Count 6.98 K/mm3 (4.00-11.30)
[2025-03-14 05:20] LABS: Albumin, Blood 3.8 g/dL (3.4-5.0); Albumin/Globulin Ratio 1.1 (0.8-1.8); Bilirubin, Total 0.2 mg/dL (0.1-1.0); Bun/Creatinine Ratio 19.9 (12.0-20.0); Calcium, Blood 9.5 mg/dL (8.5-10.1); Creatinine, Blood 0.65 mg/dL (0.40-1.00); Globulin, Blood 3.5 g/dL (2.2-4.0); Potassium, Blood 4.3 mmol/L (3.5-5.5); Total Protein, Blood 7.3 g/dL (6.4-8.2)
[2025-03-14 05:48] VITALS: BP 128/61
[2025-03-14] MEDS ORDERED: Mag Hydrox/AL Hydrox/Simeth 30 ML UDC PO ONE (06:40)
[2025-03-14] MEDS ORDERED: Famotidine 10 MG/ML 2ML Vial IV ONE (06:40)
[2025-03-14] MEDS ORDERED: FAMO20 PO (07:13)
== END 2025-03-14 07:55 | disposition home or self-care (01) ==
LOC: ER 04:44
PROVIDERS: Emergency Medicine
DX: K21.9 Gastro-esophageal reflux disease without esophagitis (principal); R10.13 Epigastric pain; R11.0 Nausea; F17.210 Nicotine dependence, cigarettes, uncomplicated; Z86.79 Personal history of other diseases of the circulatory system; Z88.6 Allergy status to analgesic agent; Z88.8 Allergy status to other drugs, medicaments and biological substances
CPT/HCPCS: 80053; 83690; 84484; 85025; 93005; 93010; 96374; 99284-25; A9270

== ENCOUNTER 2025-04-04 19:12 | Emergency (ER) | payer MEDICARE, OTHER ==
[~2025-04-04] VITALS: Ht 157.5 cm; Wt 74.8 kg
[~2025-04-04 19:12] MED LIST changes: +FAMO20 PO
[2025-04-04 20:43] LABS: BASOPHILS ABSOLUTE AUTO 0.01 K/mm3 (0.00-0.23); BASOPHILS PERCENT AUTO 0 % (0-2); EOSINOPHILS ABSOLUTE AUTO 0.07 K/mm3 (0.00-0.68); EOSINOPHILS PERCENT AUTO 1 % (0-6); Hematocrit 34.4 % (33.0-51.0); Hemoglobin 11.3 g/dL (11.5-16.0); IMMATURE GRAN ABSOLUTE AUTO 0.03 K/mm3 (0.00-0.10); IMMATURE GRAN PERCENT AUTO 0 % (0-1); LYMPHOCYTES ABSOLUTE AUTO 1.92 K/mm3 (0.84-5.20); LYMPHOCYTES PERCENT AUTO 25 % (21-46); MONOCYTES ABSOLUTE AUTO 0.58 K/mm3 (0.16-1.47); MONOCYTES PERCENT AUTO 8 % (4-13); Mean Corpuscular HGB Conc 32.8 g/dL (31.5-36.5); Mean Corpuscular Volume 102 fL (80-100); NEUTROPHILS ABSOLUTE AUTO 5.01 K/mm3 (1.96-9.15); NEUTROPHILS PERCENT AUTO 66 % (41-73); NRBC ABSOLUTE 0.00 K/mm3 (0.00-0.02); NRBC Auto 0.0 /100 WBC (0.0-0.2); Platelet Count 182 K/mm3 (150-400); RDW Coefficient Variation 13.4 % (11.7-14.2); RDW Standard Deviation 50.1 fL (35.1-46.3)
[2025-04-04 21:08] LABS: Alanine Aminotransfer (ALT/SGP 26.0 U/L (12-78); Albumin, Blood 3.7 g/dL (3.4-5.0); Albumin/Globulin Ratio 1.1 (0.8-1.8); Anion Gap 6.0 mmol/L (3-11); Aspartate Aminotrans (AST/SGOT 18.0 U/L (12-37); Bilirubin, Total 0.1 mg/dL (0.1-1.0); Blood Urea Nitrogen 14.0 mg/dL (8-24); CO2, Blood 31.0 mmol/L (21-32); Calcium, Blood 9.1 mg/dL (8.5-10.1); Chloride, Blood 106.0 mmol/L (98-108); Creatinine, Blood 0.69 mg/dL (0.40-1.00); Globulin, Blood 3.4 g/dL (2.2-4.0); Glucose, Blood 93.0 mg/dL (70-99); Magnesium, Blood 2.3 mg/dL (1.6-2.4); Potassium, Blood 4.1 mmol/L (3.5-5.5); Sodium, Blood 139.0 mmol/L (136-145); Total Protein, Blood 7.1 g/dL (6.4-8.2)
[2025-04-04 21:52] LABS: Source, Urine Clean Catch
[2025-04-04 22:06] LABS: Bilirubin, Urine Neg (Neg); Glucose Qualitative, Urine Neg (Neg); Ketones, Urine Neg (Neg); Leukocyte Esterase, Urine Neg (Neg); Protein, Urine 1+ (Neg); Specific Gravity, Urine 1.015 (1.003-1.022); Urobilinogen, Urine NORM (Normal)
[2025-04-04 22:14] LABS: Color, Urine Pale Yellow (P-Yellow); Red Blood Cells, Urine 0-2 /hpf (0-2); White Blood Cells, Urine 0-2 /hpf (0-5)
[2025-04-04 23:17] VITALS: BP 132/80
[2025-04-05] MEDS ORDERED: MIRALAX17 GM PO (01:04)
[2025-04-05] MEDS ORDERED: ONDA4 PO (01:04)
== END 2025-04-05 05:50 | disposition home or self-care (01) ==
LOC: ER 19:12
PROVIDERS: Emergency Medicine
DX: K52.9 Noninfective gastroenteritis and colitis, unspecified (principal); Z79.899 Other long term (current) drug therapy; J44.9 Chronic obstructive pulmonary disease, unspecified; K21.9 Gastro-esophageal reflux disease without esophagitis; F17.210 Nicotine dependence, cigarettes, uncomplicated
CPT/HCPCS: 74177; 80053; 81001; 83690; 83735; 85025; 99284-25; Q9967